=== PATIENT | female | born 1935 | race Caucasian/White ===

== ENCOUNTER 2016-09-26 11:12 | Inpatient (IN) | payer MEDICARE, MEDICAID ==
[~2016-09-26] VITALS: Ht 165.1 cm; Wt 57.2 kg
[~2016-09-26 11:12] MED LIST: AMLO10TA2 PO; ASPI81TA2 PO; Blood Sugar Diagnostic VI; INSU10VI3; INSU3INS6 SUBCUT; LEVO250T2 PO; LOSA100T3 PO; METF500T PO; METO50TA7 PO; ROSU5TAB PO
[2016-09-26] MEDS ORDERED: IV NS 0.9% 500 ML BAG IV ONE (12:00)
--- NOTE | 2016-09-26 12:04 | NUR ---
pt transported to CT in stable condition
[2016-09-26 12:14] LABS: BASOPHILS % (AUTO) 0.3 % (0.0-2.0); EOSINOPHILS # (AUTO) 0.1 /CMM (0.0-0.7); EOSINOPHILS % (AUTO) 2.1 % (0.0-6.0); HEMATOCRIT 35 % (33-45); HEMOGLOBIN 11.3 g/dL (11.5-14.8); LYMPHOCYTES # (AUTO) 1.2 /CMM (0.8-4.8); LYMPHOCYTES % (AUTO) 16.9 % (20.0-44.0); MEAN CORPUSCULAR HEMOGLOBIN 29 PG (26.0-33.0); MEAN CORPUSCULAR HGB CONC 33 g/dl (31.0-36.0); MEAN CORPUSCULAR VOLUME 87 fL (82-100); MONOCYTES # (AUTO) 0.4 /CMM (0.1-1.30); MONOCYTES % (AUTO) 5.6 % (2.0-12.0); NEUTROPHILS # (AUTO) 5.4 /CMM (1.8-8.9); NEUTROPHILS % (AUTO) 75.1 % (43.0-81.0); PLATELET COUNT (AUTO) 280 /CMM (150-450); RDW COEFFICIENT OF VARIATION 12.4 (11.5-15.0); RED BLOOD CELL COUNT(AUTO) 3.98 MIL/uL (4.0-5.2); WHITE BLOOD COUNT (AUTO) 7.1 K/uL (4.3-11.0)
[2016-09-26] MEDS ORDERED: LORAZEPAM INJ 2 MG/ML VIAL ONE ×2 (12:16→12:38)
[2016-09-26 12:28] LABS: INR 1.09 (0.87-1.13); PROTHROMBIN TIME 11.3 SECS (9.5-12.7)
[2016-09-26 12:29] LABS: ALANINE AMINOTRANSFERASE 8 U/L (12-78); ALKALINE PHOSPHATASE 57 U/L (46-116); ASPARTATE AMINOTRANSFERASE 15 U/L (15-37); BILIRUBIN,DIRECT 0.2 mg/dL (0.0-0.2); BILIRUBIN,TOTAL 0.6 mg/dL (0.2-1.0); CALCIUM, SERUM 8.4 mg/dL (8.5-10.1); CARBON DIOXIDE 24 mmol/L (21-32); CHLORIDE 99 mmol/L (98-107); CREATININE 1.4 mg/dL (0.6-1.3); POTASSIUM 4.1 mmol/L (3.5-5.1); SODIUM SERUM 132 mmol/L (136-145); UREA NITROGEN, BLOOD 24 mg/dL (7-18)
--- NOTE | 2016-09-26 12:29 | NUR ---
radiology called to report pt was moving too much for CT. verbal order for 1mg ativan IV now received and administered.
[2016-09-26 12:31] LABS: TROPONIN I < 0.017 ng/mL (0.00-0.056)
[2016-09-26 12:32] LABS: GLUCOSE 357 mg/dL (74-106)
--- NOTE | 2016-09-26 12:44 | NUR ---
CT called to report pt is still moving too much for CT scan. verbal order received for 1mg ativan IV now; administered in CT room by me.
--- NOTE | 2016-09-26 12:53 | NUR ---
CAN NOT DO CT SCAN NOR XRAYS, PT KEEPS MOVING.
--- NOTE | 2016-09-26 12:56 | NUR ---
pt returned from radiology; unable to perform CT or xray d/t pt moving. Dr Olivas aware.
--- NOTE | 2016-09-26 12:59 | NUR ---
CALLED NURSING SUP. FOR TELE BED
[2016-09-26] MEDS ORDERED: LORAZEPAM INJ 2 MG/ML VIAL IV ONE ×3 (13:00)
[2016-09-26] MEDS ORDERED: IV NS 0.9% 500 ML IV ONE (13:07)
[2016-09-26] MEDS ORDERED: IV SET PRIMARY 1 EA INFUS.SET MC ONE ×2 (13:07→13:52)
[2016-09-26] MEDS ORDERED: INSU100V7 SQ (13:17)
[2016-09-26] MEDS ORDERED: AMLO10TA2 PO (13:17)
[2016-09-26 13:19] LABS: APPEARANCE,URINE Turbid (CLEAR); BILIRUBIN,URINE Negative (NEGATIVE); BLOOD, URINE Small Ery/uL (NEGATIVE); COLOR,URINE Light yellow (YELLOW); KETONES,URINE Negative (NEGATIVE); LEUKOCYTE ESTERASE ,URINE Large (NEGATIVE); NITRITE, URINE Positive (NEGATIVE); PH,URINE 6.5 (5.0-8.0); PROTEIN,URINE 30 mg/dl (NEGATIVE); UGLUCOSE Negative (NEGATIVE); UROBILINOGEN,URINE 0.2 EU/dL (0.2)
[2016-09-26] MEDS ORDERED: OLANZAPINE 10 MG VIAL IM ONE ×2 (13:22→13:30)
[2016-09-26] MEDS ORDERED: WATER FOR INJECTION,STERILE 10 ML ONE (13:22)
--- NOTE | 2016-09-26 13:22 | NUR ---
attempted CT and xray again; pt still moving too much.
--- NOTE | 2016-09-26 13:29 | NUR ---
DR.TIM GLEN MONTES DE [facility] CAN SEALER
[2016-09-26 13:30] LABS: ADD URINE CULTURE YES; BACTERIA,URINE 4+ /HPF (None Seen); SQUAMOUS EPITHELIAL CELL,UR Few /HPF (None Seen); WBC,URINE TOO NUMEROUS TO COUN /HPF (0-3)
[2016-09-26] MEDS ORDERED: CEFTRIAXONE 1GM BAG (ER ONLY) 1 GM/50 ML PIGGYBACK IV ONE (13:30)
[2016-09-26] MEDS ORDERED: INSULIN REGULAR, HUMAN 100 UNIT/ML 10 ML VIAL SQ ONE (13:30)
--- NOTE | 2016-09-26 13:41 | NUR ---
PT GOING TO TELE 311-2
--- NOTE | 2016-09-26 13:44 | NUR ---
[facility] REPAGED
--- NOTE | 2016-09-26 13:46 | NUR ---
dr gore on phone with nimisha waters
[2016-09-26] MEDS ORDERED: INSULIN REGULAR, HUMAN 100 UNIT/ML 10 ML VIAL ONE (13:52)
[2016-09-26] MEDS ORDERED: CEFTRIAXONE 1GM BAG (ER ONLY) 50 ML IV ONE (13:52)
--- NOTE | 2016-09-26 14:18 | NUR ---
report given to television specialist. pt resting comfortably in bed, nad noted. vss.
--- NOTE | 2016-09-26 14:50 | NUR ---
pt transported to tele in stable condition via acls protocol
--- NOTE | 2016-09-26 14:55 | NUR ---
CHILD AND YOUTH PROGRAM ASSISTANT NOTES RECEIVED PATIENT FROM E.R. DEPARTMENT, UNDER THE CARE OF DR. KE CARROLL, WITH ADMITTING DIAGNOSIS OF PNEUMONIA, WITH MEDICAL HX OF DM, HTN, ALZHEIMERS, CARDIAC D/O, SCIATICA, UTI, URINARY RETENTION. PATIENT TRANSFERRED TO BED FROM [facility], ALERT AND ORIENTED X1, ON O2 AT 2LPM VIA NC WITH SPO2 92-94%, NO SHORTNESS OF BREATH NOTED, BILATERAL LUNGS DIMINISHED UPON AUSCULTATION, APPEARS TO BE RESTLESS, INITIAL ASSESSMENT COMPLETED, ABDOMEN SOFT AND NON-DISTENDED, PIV ON LFA G20, PATENT AND INTACT, FLUSHES WELL WITH NS, AM CARE RENDERED, DIAPER SOILED AND CHANGED, ENSURE SAFETY AND COMFORT, SIDERAILS X2 UP, LOW BED, LOCKED POSITION, BED ALARM ON, CALL LIGHT WITHIN REACH, WILL CONTINUE TO MONITOR.
--- NOTE | 2016-09-26 15:00 | NUR ---
GARMENT TURNER NOTES SKIN ASSESSMENT COMPLETED, PHOTOS TAKEN AND PLACED IN CHART.
[2016-09-26] MEDS ORDERED: DEXTROSE 50%-WATER 50 ML DISP.SYRIN IV PRN (15:30)
[2016-09-26] MEDS ORDERED: Z GUARD REMEDY 2 OZ OINT TP PRN (15:30)
[2016-09-26] MEDS ORDERED: ACETAMINOPHEN 325 MG TABLET PO PRN (15:30)
[2016-09-26] MEDS ORDERED: ONDANSETRON HCL/PF 4 MG/2 ML VIAL IVP PRN (15:30)
[2016-09-26] MEDS ORDERED: IV SET PRIMARY PUMP SET 1 EA INFUS.SET MC ONE (15:52)
[2016-09-26 16:00] VITALS: BP 152/93
--- NOTE | 2016-09-26 16:00 | NUR ---
AUTO AIR CONDITIONING INSTALLER NOTES SON AT BEDSIDE, PATIENT SLEEPING COMFORTABLY, BREATHING EVEN AND UNLABORED, NO S/SX OF DISTRESS NOTED, VITAL SIGNS STABLE, HOB ELEVATED, SAFETY MEASURES IN PLACED, CALL LIGHT WITHIN REACH, WILL CONTINUE TO MONITOR.
[2016-09-26] MEDS: IV NS 0.9% 1,000 ML IV PRN (16:01)
[2016-09-26] MEDS ORDERED: CEFTRIAXONE 1 G in IV D5W 50 ML IV SCH (17:00)
[2016-09-26] MEDS ORDERED: FLUMAZENIL 0.5 MG VIAL ONE (17:48)
[2016-09-26 17:54] LABS: ABG PCO2 49.7 mmHg (35.0-45.0); ABG PH 7.311 (7.350-7.450); ABG TOTAL HEMOGLOBIN 10.7 G/dL (12.0-16.0); COHb 0.1 % (0.5-1.5); O2Hb 96.9 % (94.0-97.0); SITE, ABG Right Radial; VENT MODE, BG 32% N/C
[2016-09-26] MEDS ORDERED: FLUMAZENIL 0.5 MG VIAL IV PRN (18:00)
[2016-09-26 18:06] VITALS: BP 100/50
[2016-09-26] MEDS: BLOOD SUGAR DIAGNOSTIC 1 EACH STRIP IN SCH ×2 (18:17→22:34)
--- NOTE | 2016-09-26 19:00 | NUR ---
PENOLOGY PROFESSOR NOTES 1736 FSBS RESULT = 11, PATIENT FOUND TO BE UNRESPONSIVE, CHARGE NURSE MADE AWARE 174 MARKETING PERFORMANCE ANALYST PAGED, D50% GIVEN AND FSBS REPEATED WITH RESULT OF 307, 1745 MARKETING PERFORMANCE ANALYST TEAM CAME KEYLA WAGGONER FROM ICU, BUSHRA RT AND DR. GIBSON, VITAL SIGNS STABLE BP 100/50 PULSE 74 R 14 O2SAT 94% TEMP 98.0 2ND DOSE OF D50% GIVEN, FSBS REPEATED WITH RESULT OF 455, PATIENT STILL UNRESPONSIVE. 1748 ROMAZICON 0.2MG IVP, PATIENT WOKE UP THEN SLEPT AGAIN, ADDITIONAL 0.3MG IVP GIVEN AND PATIENT BECAME MORE ALERT. EKG TAKEN BY RT. 1804 RAPID RESPONSE END TIME [address] CARROLL MADE AWARE BY ICU NURSE ABG AND EKG RESULTS REVIEWED BY DR. GIBSON WITH NO NEW ORDER AT THIS TIME. PATIENT TOLERATED AND CONSUMED 100% DINNER. LAST FSBS TAKEN WITH RESULT OF 233 AT 1900. PATIENT SLEEPING INTERMITTENTLY BUT EASILY AROUSABLE. NO S/SX OF DISTRESS AT THIS TIME. WILL ENDORSE TO GRADUATE RESEARCH ASSISTANT FOR SHIELA.
[2016-09-26 20:00] VITALS: BP 108/65
[2016-09-26] MEDS ORDERED: ZOLPIDEM TARTRATE 5 MG TABLET PO PRN (22:00)
[2016-09-26] MEDS: INSULIN DETEMIR 100 UNIT/ML CARTRIDGE SQ SCH (22:00)
[2016-09-26] MEDS: ATORVASTATIN 10 MG TABLET PO SCH (22:57)
[2016-09-26] MEDS: INSULIN REGULAR, HUMAN 100 UNIT/ML 3 ML VIAL SQ PRN (23:07)
[2016-09-27] VITALS: BP 155/78
[2016-09-27 04:00] VITALS: BP_SYST 111; BP_SYST 143; BP_DIAS 69; BP_DIAS 83
[2016-09-27] MEDS: IV NS 0.9% 1,000 ML IV PRN (05:43)
--- NOTE | 2016-09-27 06:28 | NUR ---
ELECTRICAL CONTINUITY INSPECTOR NOTES AWAKE & CONFUSED. NOT IN ANY DISTRESS. NO SOB NOTED. DENIES ANY PAIN OR DISCOMFORT AT THIS TIME. ON TELE SR @ 69 WITH IVF INFUSING WELL. AM CARE DONE. MONITORED ACCORDINGLY. CALL LIGHT WITHIN REACH. BED IN LOWEST POSITION. SR UP X 3 WITH BED ALARM ON FOR SAFETY. WILL ENDORSE TO NEXT SHIFT.
[2016-09-27 06:42] LABS: BASOPHILS % (AUTO) 0.4 % (0.0-2.0); EOSINOPHILS # (AUTO) 0.1 /CMM (0.0-0.7); EOSINOPHILS % (AUTO) 1.7 % (0.0-6.0); HEMATOCRIT 35 % (33-45); HEMOGLOBIN 11.5 g/dL (11.5-14.8); LYMPHOCYTES # (AUTO) 1.2 /CMM (0.8-4.8); LYMPHOCYTES % (AUTO) 15.7 % (20.0-44.0); MEAN CORPUSCULAR HEMOGLOBIN 29 PG (26.0-33.0); MEAN CORPUSCULAR HGB CONC 33 g/dl (31.0-36.0); MEAN CORPUSCULAR VOLUME 88 fL (82-100); MONOCYTES # (AUTO) 0.6 /CMM (0.1-1.30); NEUTROPHILS # (AUTO) 5.9 /CMM (1.8-8.9); NEUTROPHILS % (AUTO) 75.2 % (43.0-81.0); PLATELET COUNT (AUTO) 299 /CMM (150-450); RDW COEFFICIENT OF VARIATION 13.5 (11.5-15.0); RED BLOOD CELL COUNT(AUTO) 3.99 MIL/uL (4.0-5.2); WHITE BLOOD COUNT (AUTO) 7.9 K/uL (4.3-11.0)
[2016-09-27 07:15] LABS: BILIRUBIN,TOTAL 0.6 mg/dL (0.2-1.0); CALCIUM, SERUM 8.7 mg/dL (8.5-10.1); CREATININE 1.1 mg/dL (0.6-1.3); MAGNESIUM 1.7 mg/dL (1.8-2.4); PHOSPHORUS 3.7 mg/dL (2.5-4.9); POTASSIUM 4.3 mmol/L (3.5-5.1); TOTAL PROTEIN, SERUM 7.3 g/dL (6.4-8.2)
--- NOTE | 2016-09-27 07:25 | NUR ---
RN OPEN NOTES RECEIVED REPORT FROM CAR MOVER NURSE. PATIENT IS IN BED, AWAKE. PUERTO RICAN SPEAKING. PATIENT IS REMOVING BLANKETS AND TRYING TO PULL HER IV LINE. SINUS RHYTHM ON THE MONITOR. IV SITE IS COVERED. 3 SIDE RAILS ARE UP. SITTER WILL BE REQUESTED. BED IS IN LOW POSITION AND LOCKED. WILL CONTINUE TO ASSESS AND MONITOR PATIENT CONDITION THROUGH OUT MY SHIFT.
[2016-09-27] MEDS: BLOOD SUGAR DIAGNOSTIC 1 EACH STRIP IN SCH ×4 (07:30→21:23)
--- NOTE | 2016-09-27 07:55 | NUR ---
RN NOTES PT. AGITATION PAGED DR CARROLL THROUGH [employer]. PATIENT IS TRYING TO GET OFF BED, PULLING HER IV SITE, REMOVED HER TELE LEADS AND BOX, REMOVED GOWN AND BLANKET.
[2016-09-27 09:34] LABS: THYROID STIMULATING HORMONE 1.401 uIU/mL (0.358-3.74)
[2016-09-27] MEDS: ASPIRIN 81 MG TAB.CHEW PO SCH (09:52)
[2016-09-27] MEDS: METFORMIN 500 MG TABLET PO SCH (09:53)
[2016-09-27] MEDS: AMLODIPINE BESYLATE 10 MG TABLET PO SCH (09:53)
[2016-09-27] MEDS: PANTOPRAZOLE 40 MG TABLET.DR PO SCH (09:53)
[2016-09-27] MEDS: LOSARTAN POTASSIUM 50 MG TABLET PO SCH (09:53)
[2016-09-27] MEDS: METOPROLOL SUCCINATE 50 MG TAB.SR.24H PO SCH (09:54)
[2016-09-27] MEDS ORDERED: OLANZAPINE 10 MG VIAL IM ONE (10:00)
--- NOTE | 2016-09-27 10:00 | NUR ---
RN NOTES PATIENT PULLED HER IV SITE. NEW SITE WAS STARTED.
[2016-09-27] MEDS: INSULIN REGULAR, HUMAN 100 UNIT/ML 3 ML VIAL SQ PRN ×4 (12:08→21:26)
[2016-09-27] MEDS ORDERED: SECONDARY IV SET 1 EA INFUS.SET MC ONE ×2 (12:34→14:46)
[2016-09-27] MEDS ORDERED: SET RED CAP 1 EA INFUS.SET MC ONE (12:35)
[2016-09-27] MEDS: Magnesium 1GM/D5W 100ML PREMIX 100 ML IV SCH ×2 (12:41→13:47)
[2016-09-27] MEDS: CEFTRIAXONE 1 G in IV D5W 50 ML IV SCH (14:50)
--- NOTE | 2016-09-27 16:17 | NUR ---
RN NOTES PT PATIENT WAS WORKING WITH PHYSICAL THERAPY. WAS ABLE TO SIT AT THE EDGE OF THE BED AND WALKED TWO STEPS TO THE SIDE. COMPLETE LINEN AND DIAPER CHANGED
[2016-09-27 17:03] VITALS: BP 137/65
--- NOTE | 2016-09-27 17:35 | NUR ---
ROSALINE NOTES BLOOD SUGAR PATIENT BLOOD SUGAR IS HIGH. 1ST BLOOD SUGAR 402, 2ND BLOOD SUGAR 420. 10 REGULAR INSULIN ADMINISTERED. NOTIFIED AT 1748. Addendum: 09/27/16 at 1848 by GABRIEL ESTRADA RN DR CARROLL REPLIED. ORDERED TO RECHECK BLOOD SUGAR AND TO ADMINISTER 10 MORE UNITS. BLOOD SUGAR IS 382, 10 UNITS ADMINISTERED
--- NOTE | 2016-09-27 18:49 | NUR ---
RN CLOSING NOTES PATIENT IS SITTING IN A WHEELCHAIR IN THE HALLWAY NEXT TO THE NURSING STATION. WHEELCHAIR LOCKED =. PATIENT IS AWAKE AND TALKING. SPEAKING BELARUSIAN ONLY. IV SITE ON THE RIGHT WRIST IS INTACT AND POTENT. NO SIGN AND SYMPTOMS OF DISTRESS. PLEASE REFER TO BLOOD SUGAR LEVEL IN MY PREVIOUS NOTE. 1:1 SITTER ORDERED FOR SUPERVISOR TRAVEL TRAILER. WILL ENDORSE TO SUPERVISOR TRAVEL TRAILER NURSE.
[2016-09-27 20:00] VITALS: BP 118/97
[2016-09-27 20:21] VITALS: BP 118/97
[2016-09-27] MEDS: ATORVASTATIN 10 MG TABLET PO SCH (21:23)
[2016-09-27] MEDS: INSULIN DETEMIR 100 UNIT/ML CARTRIDGE SQ SCH (21:25)
--- NOTE | 2016-09-28 06:38 | NUR ---
MS RN NOTES AWAKE & CONFUSED. NOT IN ANY DISTRESS. NO SOB NOTED. DENIES ANY PAIN OR DISCOMFORT AT THIS TIME. WITH IVF INFUSING WELL. AM CARE DONE. MONITORED ACCORDINGLY. CALL LIGHT WITHIN REACH. BED IN LOWEST POSITION. WITH SITTER AT BEDSIDE. SR UP X 3 WITH BED ALARM ON FOR SAFETY. WILL ENDORSE TO NEXT SHIFT.
[2016-09-28 07:14] LABS: BASOPHILS % (AUTO) 0.6 % (0.0-2.0); EOSINOPHILS # (AUTO) 0.1 /CMM (0.0-0.7); EOSINOPHILS % (AUTO) 1.8 % (0.0-6.0); HEMATOCRIT 34 % (33-45); HEMOGLOBIN 11.2 g/dL (11.5-14.8); LYMPHOCYTES # (AUTO) 1.4 /CMM (0.8-4.8); LYMPHOCYTES % (AUTO) 21.1 % (20.0-44.0); MEAN CORPUSCULAR HEMOGLOBIN 28 PG (26.0-33.0); MEAN CORPUSCULAR HGB CONC 33 g/dl (31.0-36.0); MEAN CORPUSCULAR VOLUME 87 fL (82-100); MONOCYTES # (AUTO) 0.6 /CMM (0.1-1.30); MONOCYTES % (AUTO) 8.6 % (2.0-12.0); NEUTROPHILS # (AUTO) 4.5 /CMM (1.8-8.9); NEUTROPHILS % (AUTO) 67.9 % (43.0-81.0); PLATELET COUNT (AUTO) 275 /CMM (150-450); RDW COEFFICIENT OF VARIATION 13.3 (11.5-15.0); RED BLOOD CELL COUNT(AUTO) 3.93 MIL/uL (4.0-5.2); WHITE BLOOD COUNT (AUTO) 6.7 K/uL (4.3-11.0)
[2016-09-28 07:26] LABS: CALCIUM, SERUM 8.4 mg/dL (8.5-10.1); CREATININE 1.2 mg/dL (0.6-1.3); MAGNESIUM 2.1 mg/dL (1.8-2.4); PHOSPHORUS 3.6 mg/dL (2.5-4.9); POTASSIUM 4.2 mmol/L (3.5-5.1)
[2016-09-28] MEDS: BLOOD SUGAR DIAGNOSTIC 1 EACH STRIP IN SCH ×4 (07:30→21:42)
--- NOTE | 2016-09-28 07:50 | NUR ---
MS RN RECEIVED ON BED, AWAKE,, ORIENTED X1, ON ONE ON ONE SITTER FOR SAFETY, DENIES PAIN AT THIS TIME,NO DISTRESS NOTED, WILL MONITOR PATIENT'S CONDITION.
[2016-09-28 08:00] VITALS: BP 130/74
--- NOTE | 2016-09-28 08:32 | NUR ---
WOUND CARE CONSULT: PATIENT SEEN AND SKIN ASSESSMENT DONE. PATIENT ALERT, UNABLE TO TURN AND REPOSITION SELF, INCONTINENT, SARA 13, DEEPIKA ISOFLEX RITA BED IN USE. SEE TODAY'S SKIN ASSESSMENT ALONG WITH RECOMMENDATIONS. RECOMMEND MOISTURE / SKIN PROTECTION AND PRESSURE PREVENTION MEASURES ORDERED. ALL DISCUSSED WITH NURSING STAFF. MD IN AGREEMENT WITH PLAN OF CARE. Addendum: 09/28/16 at 0839 by LUKE JAIME WNDNU Amended: Links added.
[2016-09-28] MEDS: METFORMIN 500 MG TABLET PO SCH (09:00)
--- NOTE | 2016-09-28 09:00 | NUR ---
MS RN REFUSED BREAKFAST, DUE MEDS GIVEN,TOLERATED WELL.
[2016-09-28] MEDS: AMLODIPINE BESYLATE 10 MG TABLET PO SCH (09:34)
[2016-09-28] MEDS: PANTOPRAZOLE 40 MG TABLET.DR PO SCH (09:34)
[2016-09-28] MEDS: METOPROLOL SUCCINATE 50 MG TAB.SR.24H PO SCH (09:34)
[2016-09-28] MEDS: ASPIRIN 81 MG TAB.CHEW PO SCH (09:34)
[2016-09-28] MEDS: LOSARTAN POTASSIUM 50 MG TABLET PO SCH (09:35)
--- NOTE | 2016-09-28 12:00 | NUR ---
MS RN BS - 217 - NO COVERAGE GIVEN, PATIENT REFUSE LUNCH,NOT EATING WELL, HAD HISTORY OF HYPOGLYCEMIA.
--- NOTE | 2016-09-28 15:00 | NUR ---
MS RN WAS SEEN BY DR. KE Mclaughlin/ ORDER TO GO HOME TODAY.
[2016-09-28] MEDS: CEFTRIAXONE 1 G in IV D5W 50 ML IV SCH (15:37)
[2016-09-28 16:00] VITALS: BP 150/79
[2016-09-28] MEDS: NEOMY SULF/BACITRAC ZN/POLY 15 GM TUBE TP SCH (17:05)
--- NOTE | 2016-09-28 17:20 | NUR ---
MS RN CALLED SON YOVANY, FOR DISCHARGE, SON REFUSE MOM TO BE DISCHARGE TODAY, ACCORDING TO HIM,SHE IS NOT YET READY TO BE DISCHARGE,AND WANTS TO SPEAK W/ THE DOCTOR.
--- NOTE | 2016-09-28 17:20 | NUR ---
MS WAGGONER BS - 276 - 6 UNITS OF REGULAR INSULIN GIVEN, SQ.
[2016-09-28] MEDS: INSULIN REGULAR, HUMAN 100 UNIT/ML 3 ML VIAL SQ PRN ×2 (17:33→21:53)
--- NOTE | 2016-09-28 17:50 | NUR ---
MS WAGGONER BS - 276 - 6 UNITS REGULAR INSULIN GIVE SQ.
--- NOTE | 2016-09-28 18:00 | NUR ---
MS RN TEXT KE W/ ANSWER TO DISCHARGE PT TODAY.
--- NOTE | 2016-09-28 18:09 | NUR ---
MS RN SON TEXTED THAT NOBODY TO PICK HIS MOM TODAY,HE IS IN [facility]. AWARE.
--- NOTE | 2016-09-28 19:40 | NUR ---
MS RN NOTE: PATIENT RESTING IN BED, NO ACUTE DISTRESS NOTED. BREATHING EVEN AND UNLABORED, NO SOB NOTED. IV TO RIGHT WRIST IN PLACE. NO S/S OF HYPER/HYPOGLYCEMIA NOTED AT THIS TIME. SITTER AT BEDSIDE. BED LOCKED AND IN LOWEST POSITION, CALL LIGHT IN REACH. WILL CONTINUE TO MONITOR.
[2016-09-28 20:00] VITALS: BP 117/73
[2016-09-28] MEDS: ATORVASTATIN 10 MG TABLET PO SCH (21:41)
[2016-09-28] MEDS: INSULIN DETEMIR 100 UNIT/ML CARTRIDGE SQ SCH (21:48)
--- NOTE | 2016-09-28 21:55 | NUR ---
MS RN NOTE: PATIENT BLOOD SUGAR LEVEL 289MG/DL, PATIENT TO RECEIVE 10 UNITS OF LEVEMIR PER MD ORDER AND 6 UNITS OF INSULIN PER SLIDING SCALE. NO S/S OF HYPER/HYPOGLYCEMIA NOTED AT THIS TIME. WILL CONTINUE TO MONITOR.
--- NOTE | 2016-09-29 06:20 | NUR ---
MS RN NOTE: PATIENT RESTING IN BED, NO ACUTE DISTRESS NOTED. BREATHING EVEN AND UNLABORED, NO SOB NOTED. IV TO RIGHT WRIST IN PLACE. PATIENT BLOOD SUGAR LEVEL 247MG/DL, PATIENT TO RECEIVE 4 UNITS OF INSULIN PER SLIDING SCALE, NO S/S OF HYPER/HYPOGLYCEMIA NOTED AT THIS TIME. SITTER AT BEDSIDE. BED LOCKED AND IN LOWEST POSITION, CALL LIGHT IN REACH. WILL ENDORSE TO DAY NURSE TO CONTINUE WITH PLAN OF CARE.
[2016-09-29] MEDS: BLOOD SUGAR DIAGNOSTIC 1 EACH STRIP IN SCH ×2 (06:44→12:31)
[2016-09-29] MEDS: INSULIN REGULAR, HUMAN 100 UNIT/ML 3 ML VIAL SQ PRN ×2 (06:50→12:32)
[2016-09-29 07:19] LABS: BASOPHILS % (AUTO) 0.5 % (0.0-2.0); EOSINOPHILS # (AUTO) 0.2 /CMM (0.0-0.7); EOSINOPHILS % (AUTO) 2.9 % (0.0-6.0); HEMATOCRIT 34 % (33-45); HEMOGLOBIN 11.4 g/dL (11.5-14.8); LYMPHOCYTES # (AUTO) 1.1 /CMM (0.8-4.8); LYMPHOCYTES % (AUTO) 17.3 % (20.0-44.0); MEAN CORPUSCULAR HEMOGLOBIN 29 PG (26.0-33.0); MEAN CORPUSCULAR HGB CONC 33 g/dl (31.0-36.0); MEAN CORPUSCULAR VOLUME 86 fL (82-100); MONOCYTES # (AUTO) 0.5 /CMM (0.1-1.30); MONOCYTES % (AUTO) 8.3 % (2.0-12.0); NEUTROPHILS # (AUTO) 4.3 /CMM (1.8-8.9); PLATELET COUNT (AUTO) 263 /CMM (150-450); RDW COEFFICIENT OF VARIATION 13.7 (11.5-15.0); RED BLOOD CELL COUNT(AUTO) 3.96 MIL/uL (4.0-5.2); WHITE BLOOD COUNT (AUTO) 6.1 K/uL (4.3-11.0)
[2016-09-29 08:00] VITALS: BP 157/59
--- NOTE | 2016-09-29 08:02 | NUR ---
MS RN NOTE: PATIENT RESTING IN BED, NO ACUTE DISTRESS NOTED. BREATHING EVEN AND UNLABORED, NO SOB NOTED IN NO APPARENT PAIN OR DISCOMFORT. IV TO RIGHT WRIST IN PLACE. NO S/S OF HYPER/HYPOGLYCEMIA NOTED AT THIS TIME. SITTER AT BEDSIDE. BED LOCKED AND IN LOWEST POSITION, CALL LIGHT IN REACH. WILL CONTINUE WITH PLAN OF CARE.
[2016-09-29 08:03] LABS: CALCIUM, SERUM 8.7 mg/dL (8.5-10.1); CREATININE 1.2 mg/dL (0.6-1.3); MAGNESIUM 1.7 mg/dL (1.8-2.4); PHOSPHORUS 3.4 mg/dL (2.5-4.9); POTASSIUM 3.9 mmol/L (3.5-5.1)
[2016-09-29] MEDS: ASPIRIN 81 MG TAB.CHEW PO SCH (09:05)
[2016-09-29] MEDS: PANTOPRAZOLE 40 MG TABLET.DR PO SCH (09:05)
[2016-09-29 09:06] VITALS: BP 157/59
[2016-09-29] MEDS: METFORMIN 500 MG TABLET PO SCH (09:06)
[2016-09-29] MEDS: LOSARTAN POTASSIUM 50 MG TABLET PO SCH (09:06)
[2016-09-29] MEDS: METOPROLOL SUCCINATE 50 MG TAB.SR.24H PO SCH (09:06)
[2016-09-29] MEDS: AMLODIPINE BESYLATE 10 MG TABLET PO SCH (09:06)
[2016-09-29] MEDS: NEOMY SULF/BACITRAC ZN/POLY 15 GM TUBE TP SCH (09:11)
[2016-09-29] MEDS ORDERED: MAGNESIUM OXIDE 400 MG TABLET PO ONE (12:00)
--- NOTE | 2016-09-29 13:00 | NUR ---
RN NOTES ALL DUE MEDICATIONS GIVEN WITH NO ASE NOTED, WILL CONTINUE TO MONITOR
--- NOTE | 2016-09-29 13:32 | NUR ---
RN NOTES PATIENT WITH DISCHARGE ORDERS, WILL CONTINUE TO MONITOR AND ASSIST WITH DISCHARGE PROCESS APPROPRIATE, PT REFUSES PICTURES OF SKIN AT THIS TIME NOTED WITH CONFUSION MD AWARE, NURSING EDUCATION REINFORCED, WILL CONTINUE TO MONITOR SON WILL HOUSING DEVELOPMENT SPECIALIST
--- NOTE | 2016-09-29 13:42 | NUR ---
MS RN NOTE: PATIENT SITTING UP IN BED, NO ACUTE DISTRESS NOTED. BREATHING EVEN AND UNLABORED, NO SOB NOTED IN NO APPARENT PAIN OR DISCOMFORT. IV TO RIGHT WRIST IN PLACE AND ID BAND REMOVED NO S/S OF HYPER/HYPOGLYCEMIA NOTED AT THIS TIME.PATIENT CONTINUES TO REFUSE PICTURES OF SKIN, NURSING EDUCATION REINFORCED, DISCHARGE INSTRUCTIONS REVIEWED WITH SON YOVANY, WITH NOTED VERBAL UNDERSTANDING, ASSISTED TO LOBBY BY COREMAKING MACHINE SETTER DISCHARGED IN STABLE CONDITION
== END 2016-09-29 13:30 | disposition home or self-care (01) | DRG 871 ==
LOC: ER 11:14 → TELE 13:54 → MED 09-27 09:36
PROVIDERS: ADMIT Nurse Practitioner Acute Care; ATTEND Nurse Practitioner Acute Care
DX: A41.9 Sepsis, unspecified organism (principal); G93.40 Encephalopathy, unspecified; J96.02 Acute respiratory failure with hypercapnia; N17.0 Acute kidney failure with tubular necrosis; N39.0 Urinary tract infection, site not specified; F23 Brief psychotic disorder; G30.9 Alzheimer's disease, unspecified; I10 Essential (primary) hypertension; F02.80 Dementia in other diseases classified elsewhere, unspecified severity, without behavioral disturbance, psychotic disturbance, mood disturbance, and anxiety; I25.10 Atherosclerotic heart disease of native coronary artery without angina pectoris; E11.65 Type 2 diabetes mellitus with hyperglycemia; E78.5 Hyperlipidemia, unspecified; K21.9 Gastro-esophageal reflux disease without esophagitis; M54.30 Sciatica, unspecified side; Z87.440 Personal history of urinary (tract) infections; Z79.82 Long term (current) use of aspirin; Z83.3 Family history of diabetes mellitus
CPT/HCPCS: 36415; 36600; 70450-TC; 71010-TC; 73510-TC; 80048-TC; 80053-TC; 80061-TC; 80076-TC; 81000-TC; 82962-TC; 83735-TC; 84100-TC; 84443-TC; 84484-TC; 85025-TC; 85730-TC; 87081-TC; 87086-TC; 87186-TC; 97001-TC; 97116-TC; 97530-TC; A4606; J0696; J1815; J2060; J3475; J3490; J7030; J7040; J7060; Z7610

== ENCOUNTER 2016-12-14 10:45 | Inpatient (IN) | payer MEDICARE, MEDICAID ==
[~2016-12-14] VITALS: Ht 149.9 cm; Wt 59.0 kg
[2016-12-14 04:00] VITALS: BP 129/66
[~2016-12-14 10:45] MED LIST changes: +INSU100V7 SQ; -INSU10VI3; -INSU3INS6 SUBCUT; -LEVO250T2 PO
--- NOTE | 2016-12-14 10:45 | NUR ---
PT TO ED ROOM 06. BB SON: POSSIBLE UTI. KT FASTING BS IN AM: 230.PADMA. A/A/O x 1 2/2 ALZHEIMER'S DEMENTIA. CHANGED TO GOWN. SIDE RAISL UP. HOB ELEVATED. CONENCTED TO [facility]. SEEN AND EVALAUTED BY ED PROVIDER.
--- NOTE | 2016-12-14 11:10 | NUR ---
BLOOD CULTURES OBTAINED FROM PATIENT AND SEND TO LAB PRIOT TO ADMINISTRATION OF ANTIBIOTICS.
[2016-12-14] MEDS ORDERED: IV SET PRIMARY 1 EA INFUS.SET MC ONE ×2 (11:11→12:03)
[2016-12-14] MEDS ORDERED: IV NS 0.9% 500 ML IV ONE (11:11)
--- NOTE | 2016-12-14 11:11 | NUR ---
ACCU CHECK: 239.
--- NOTE | 2016-12-14 11:12 | NUR ---
GREEK PROFESSOR AT BEDSIDE FOR BLOOD DRAW.
[2016-12-14 11:17] LABS: BASOPHILS % (AUTO) 0.5 % (0.0-2.0); EOSINOPHILS # (AUTO) 0.1 /CMM (0.0-0.7); EOSINOPHILS % (AUTO) 2.2 % (0.0-6.0); HEMATOCRIT 37 % (33-45); HEMOGLOBIN 12.2 g/dL (11.5-14.8); LYMPHOCYTES # (AUTO) 1.4 /CMM (0.8-4.8); LYMPHOCYTES % (AUTO) 21.2 % (20.0-44.0); MEAN CORPUSCULAR HEMOGLOBIN 28 PG (26.0-33.0); MEAN CORPUSCULAR HGB CONC 33 g/dl (31.0-36.0); MEAN CORPUSCULAR VOLUME 85 fL (82-100); MONOCYTES # (AUTO) 0.4 /CMM (0.1-1.30); MONOCYTES % (AUTO) 6.4 % (2.0-12.0); NEUTROPHILS # (AUTO) 4.5 /CMM (1.8-8.9); NEUTROPHILS % (AUTO) 69.7 % (43.0-81.0); PLATELET COUNT (AUTO) 262 /CMM (150-450); RED BLOOD CELL COUNT(AUTO) 4.38 MIL/uL (4.0-5.2); WHITE BLOOD COUNT (AUTO) 6.4 K/uL (4.3-11.0)
[2016-12-14 11:29] LABS: CALCIUM, SERUM 8.6 mg/dL (8.5-10.1); CARBON DIOXIDE 24 mmol/L (21-32); CHLORIDE 105 mmol/L (98-107); CREATININE 1.2 mg/dL (0.6-1.3); GLUCOSE 252 mg/dL (74-106); POTASSIUM 3.8 mmol/L (3.5-5.1); SODIUM SERUM 138 mmol/L (136-145); UREA NITROGEN, BLOOD 30 mg/dL (7-18)
--- NOTE | 2016-12-14 11:29 | NUR ---
URINE SPECIMEN OBTAINED VIA STRAIGHT CATH.
[2016-12-14] MEDS ORDERED: IV NS 0.9% 500 ML BAG IV ONE (11:30)
[2016-12-14 11:33] LABS: PROTHROMBIN TIME 10.4 SECS (9.5-12.7)
[2016-12-14 11:35] LABS: ALANINE AMINOTRANSFERASE 12 U/L (12-78); ALBUMIN 3.3 g/dL (3.4-5.0); ALKALINE PHOSPHATASE 66 U/L (46-116); ASPARTATE AMINOTRANSFERASE 14 U/L (15-37); BILIRUBIN,DIRECT 0.1 mg/dL (0.0-0.2); BILIRUBIN,TOTAL 0.5 mg/dL (0.2-1.0); TOTAL PROTEIN, SERUM 7.8 g/dL (6.4-8.2)
[2016-12-14 11:37] LABS: TROPONIN I < 0.017 ng/mL (0.00-0.056)
[2016-12-14 11:37] LABS: APPEARANCE,URINE Cloudy (CLEAR); BILIRUBIN,URINE Negative (NEGATIVE); BLOOD, URINE Moderate Ery/uL (NEGATIVE); COLOR,URINE Yellow (YELLOW); KETONES,URINE Negative (NEGATIVE); LEUKOCYTE ESTERASE ,URINE Small (NEGATIVE); NITRITE, URINE Positive (NEGATIVE); PH,URINE 5.5 (5.0-8.0); PROTEIN,URINE 30 mg/dl (NEGATIVE); UGLUCOSE Negative (NEGATIVE); UROBILINOGEN,URINE 0.2 EU/dL (0.2)
[2016-12-14 11:47] LABS: BACTERIA,URINE 2+ /HPF (None Seen); SQUAMOUS EPITHELIAL CELL,UR Few /HPF (None Seen); WBC,URINE 51-80 /HPF (0-3)
--- NOTE | 2016-12-14 11:51 | NUR ---
CALLED [facility] HAZARDOUS WASTE MATERIAL TECHNICIAN DOCTOR WAS PAGED.
[2016-12-14] MEDS ORDERED: CEFTRIAXONE 1GM BAG (ER ONLY) 1 GM/50 ML PIGGYBACK IV ONE (12:00)
--- NOTE | 2016-12-14 12:00 | NUR ---
Patient is resting comfortably in bed with eyes closed. Easily aroused. VSS
[2016-12-14] MEDS ORDERED: CEFTRIAXONE 1GM BAG (ER ONLY) 50 ML IV ONE (12:03)
--- NOTE | 2016-12-14 12:48 | NUR ---
REPORT GIVEN TO LIZET 309.2 MS.
--- NOTE | 2016-12-14 13:00 | NUR ---
PATTERN WHEEL MAKER NOTE RECEIVED PATIENT FROM E.R. DEPARTMENT VIA GURNEY, ALERT AND ORIENTED X1, CONFUSED, TONGAN SPEAKING, ADMITTED DIAGNOSIS UTI&AMS, UNDER THE CARE OF DR. KE CARROLL MD MADE AWARE OF ADMISSION. PATIENT PLACED COMFORTABLY IN BED, SKIN ASSESSMENT COMPLETED, PHOTOS TAKEN OF WOUNDS ON BILATERAL BUTTOCKS, CLEANSED WITH NS, COVERED WITH MEPILEX, SITTER AT BEDSIDE, WILL CONTINUE TO MONITOR.
[2016-12-14 13:30] VITALS: BP 129/88
[2016-12-14] MEDS ORDERED: ONDANSETRON HCL/PF 4 MG/2 ML VIAL IVP PRN (14:30)
[2016-12-14] MEDS ORDERED: ACETAMINOPHEN 325 MG TABLET PO PRN (14:30)
[2016-12-14] MEDS ORDERED: ENOXAPARIN SODIUM 40 MG/0.4 ML DISP.SYRIN SQ SCH (14:30)
[2016-12-14] MEDS ORDERED: Z GUARD REMEDY 2 OZ OINT TP PRN (14:30)
[2016-12-14] MEDS ORDERED: DEXTROSE 50%-WATER 50 ML DISP.SYRIN IV PRN (16:00)
[2016-12-14] MEDS ORDERED: IV SET PRIMARY PUMP SET 1 EA INFUS.SET MC ONE (16:52)
[2016-12-14] MEDS: METFORMIN 500 MG TABLET PO SCH (16:56)
[2016-12-14] MEDS: IV NS 0.9% 1,000 ML IV PRN (17:02)
--- NOTE | 2016-12-14 17:05 | NUR ---
RN MS NOTES PATIENT ALERT AND ORIENTED X1, HAS EPISODES OF AGITATION, DR. CARROLL MADE AWARE AND GAVE ATIVAN ORDER X1, ORDER NOTED AND CARRIED OUT.
[2016-12-14] MEDS ORDERED: LORAZEPAM INJ 2 MG/ML VIAL IV ONE (17:15)
[2016-12-14] MEDS: BLOOD SUGAR DIAGNOSTIC 1 EACH STRIP IN SCH ×2 (17:24→21:16)
--- NOTE | 2016-12-14 17:25 | NUR ---
RN MS NOTES BLOOD SUGAR CHECKED TWICE WITH RESULT OF 49MG/DL. PATIENT IS ALERT AND ORIENTED, VERBALLY RESPONSIVE, ASYMPTOMATIC, PATIENT GIVEN ORANGE JUICE AND IS NOW EATING DINNER, WILL RECHECK BLOOD SUGAR AFTER DINNER, CHARGE NURSE MADE AWARE.
--- NOTE | 2016-12-14 18:30 | NUR ---
ROSALINE MS NOTES INFORMED BY TAL PATIENT ATE DINNER 100% WITH ORANGE JUICE, BLOOD SUGAR RECHECKED WITH RESULT OF 120MG/DL, PATIENT IS IN STABLE CONDITION, NO CHANGE IN LOC, NO DISTRESS NOTED, FAMILY AT BEDSIDE, APPEARS TO BE CALM AT THIS TIME, Addendum: 12/14/16 at 1846 by ELISEO OROZCO RN ADDENDUM: MADE AWARE, ALL NEEDS ATTENDED AND MET, ADL CARE PROVIDED, SITTER AT BEDSIDE, WILL ENDORSE TO PUBLIC UTILITIES SALES REPRESENTATIVE FOR SHIELA.
--- NOTE | 2016-12-14 18:49 | NUR ---
RN MS NOTES ATIVAN 0.5MG IV X1 NOT GIVEN, PATIENT IS CALM AT THIS TIME, FAMILY AND SITTER AT BEDSIDE TO ENSURE SAFETY AND COMFORT.
--- NOTE | 2016-12-14 19:30 | NUR ---
MS RN NOTE PATIENT RECEIVED AWAKE AND ALERT X1 IN BED. PT. CONFUSED. SITTER AT BEDSIDE. NO SOB OR RESPIRATORY DISTRESS NOTED. NO S/S O FPAIN. IV SITE INTACT, WITH NO REDNESS OR INFILTRATION NOTED. BED LOCKED AND IN LOWEST POSITION. SIDE RAILS UP, CALL LIGHT WITHIN REACH. WILL CONTINUE TO MONITOR.
[2016-12-14 20:00] VITALS: BP 129/59
[2016-12-14] MEDS: ATORVASTATIN 10 MG TABLET PO SCH (21:14)
[2016-12-14] MEDS: ENOXAPARIN SODIUM 30 MG/0.3 ML DISP.SYRIN SQ SCH (21:15)
[2016-12-14] MEDS: INSULIN REGULAR, HUMAN 100 UNIT/ML 3 ML VIAL SQ PRN (21:23)
[2016-12-14] MEDS ORDERED: INSULIN DETEMIR 100 UNIT/ML CARTRIDGE SQ SCH (22:00)
[2016-12-14 23:05] VITALS: BP 129/59
[2016-12-15] MEDS: BLOOD SUGAR DIAGNOSTIC 1 EACH STRIP IN SCH ×4 (05:43→21:28)
--- NOTE | 2016-12-15 06:52 | NUR ---
MS RN NOTE BLOOD SUGAR WAS 47. ADMINISTERED D50. RE-CHECKED. BS 140. PATIENT STABLE. SITTER AT BEDSIDE. WILL ENDORSE TO DAY SHIFT FOR SHIELA.
--- NOTE | 2016-12-15 07:30 | NUR ---
RECEIVED PT. IN AM ALERT AND ORIENTED X1.IV INFUSING,HAS 1:1 SITTER.
[2016-12-15 07:37] LABS: BASOPHILS % (AUTO) 0.3 % (0.0-2.0); EOSINOPHILS % (AUTO) 0.4 % (0.0-6.0); HEMATOCRIT 39 % (33-45); HEMOGLOBIN 12.8 g/dL (11.5-14.8); LYMPHOCYTES % (AUTO) 13.5 % (20.0-44.0); MEAN CORPUSCULAR HEMOGLOBIN 29 PG (26.0-33.0); MEAN CORPUSCULAR HGB CONC 33 g/dl (31.0-36.0); MEAN CORPUSCULAR VOLUME 87 fL (82-100); MONOCYTES # (AUTO) 0.3 /CMM (0.1-1.30); MONOCYTES % (AUTO) 4.7 % (2.0-12.0); NEUTROPHILS # (AUTO) 5.9 /CMM (1.8-8.9); NEUTROPHILS % (AUTO) 81.1 % (43.0-81.0); PLATELET COUNT (AUTO) 282 /CMM (150-450); RDW COEFFICIENT OF VARIATION 15.1 (11.5-15.0); RED BLOOD CELL COUNT(AUTO) 4.47 MIL/uL (4.0-5.2); WHITE BLOOD COUNT (AUTO) 7.3 K/uL (4.3-11.0)
[2016-12-15 08:00] VITALS: BP 128/69
--- NOTE | 2016-12-15 08:00 | NUR ---
TIANA DÍAZ INFORMED OF LOW GLUCOSE THIS AM-STATES HE WILL LOOK IN TO IT.
[2016-12-15 08:08] LABS: ALANINE AMINOTRANSFERASE 18 U/L (12-78); ALBUMIN 3.5 g/dL (3.4-5.0); ALKALINE PHOSPHATASE 75 U/L (46-116); ASPARTATE AMINOTRANSFERASE 17 U/L (15-37); BILIRUBIN,TOTAL 0.4 mg/dL (0.2-1.0); CALCIUM, SERUM 8.8 mg/dL (8.5-10.1); CARBON DIOXIDE 26 mmol/L (21-32); CHLORIDE 107 mmol/L (98-107); GLUCOSE 108 mg/dL (74-106); MAGNESIUM 1.5 mg/dL (1.8-2.4); PHOSPHORUS 4.1 mg/dL (2.5-4.9); POTASSIUM 3.7 mmol/L (3.5-5.1); SODIUM SERUM 143 mmol/L (136-145); TOTAL PROTEIN, SERUM 8.5 g/dL (6.4-8.2); UREA NITROGEN, BLOOD 23 mg/dL (7-18)
[2016-12-15 08:11] LABS: CHOLESTEROL 136 mg/dL (<200); HDL CHOLESTEROL 55 mg/dL (40-60); LDL 55 mg/dL (0-99); THYROID STIMULATING HORMONE 2.397 uIU/mL (0.358-3.74); TRIGLYCERIDES 77 mg/dL (30-150)
[2016-12-15] MEDS: METFORMIN 500 MG TABLET PO SCH ×2 (09:00→17:58)
[2016-12-15] MEDS: METOPROLOL SUCCINATE 50 MG TAB.SR.24H PO SCH (09:07)
[2016-12-15] MEDS: AMLODIPINE BESYLATE 10 MG TABLET PO SCH (09:07)
[2016-12-15] MEDS: ASPIRIN 81 MG TAB.CHEW PO SCH (09:07)
--- NOTE | 2016-12-15 11:20 | NUR ---
WOUND CARE CONSULT: LIMITED ASSESSMENT DUE TO PT REFUSING TO HAVE SOCKS REMOVED. PT BECOMES AGITATED AND IS COMBATIVE AT TIMES. RT BUTTOCK STAGE II ULCER NOTED TO BE PRESENT ON ADMISSION. LEFT BUTTOCK SCARRING/STAINING OF SKIN NOTED. SARA SCORE IS 17. RECOMMEND ISOFLEX LOW AIRLOSS BED, TO BE PLACED WHEN AVAILABLE. DISCUSSED ALL SKIN PROTECTION AND WOUND RECOMMENDATIONS WITH NURSING STAFF. WILL SEE PRN. BAILEY IN AGREEMENT WITH PLAN OF CARE. Addendum: 12/15/16 at 1122 by MARY WALLER WNDNU Amended: Links added.
[2016-12-15] MEDS ORDERED: SECONDARY IV SET 1 EA INFUS.SET MC ONE ×2 (11:55→16:15)
--- NOTE | 2016-12-15 12:00 | NUR ---
PT. PLACED ON ISOFLEX BED.
[2016-12-15] MEDS: Magnesium 1GM/D5W 100ML PREMIX 100 ML IV SCH ×2 (12:09→13:24)
[2016-12-15] MEDS: INSULIN REGULAR, HUMAN 100 UNIT/ML 3 ML VIAL SQ PRN ×2 (12:18→21:43)
--- NOTE | 2016-12-15 13:00 | NUR ---
PULLED OUT IV RT. ARM,NEW ANGIO PLACED RT. FOREARM.
--- NOTE | 2016-12-15 14:50 | NUR ---
GIVEN ATIVAN 1 MG. IM AT THIS TIME.
[2016-12-15] MEDS ORDERED: LORAZEPAM INJ 2 MG/ML VIAL IM ONE (15:00)
[2016-12-15 16:00] VITALS: BP 145/54
[2016-12-15] MEDS: CEFTRIAXONE 1 G in IV D5W 50 ML IV SCH (16:15)
--- NOTE | 2016-12-15 16:40 | NUR ---
MG. REPLACEMENT DONE IV.
[2016-12-15] MEDS: HYDROGEL DRESSING 90 GM TUBE TP PRN ×3 (17:58→18:00)
[2016-12-15] MEDS: LOSARTAN POTASSIUM 50 MG TABLET PO SCH (17:58)
--- NOTE | 2016-12-15 18:00 | NUR ---
SON IN TO VISIT SEVERAL TIMES.
[2016-12-15] MEDS: HYDROGEL DRESSING 90 GM TUBE TP SCH (18:01)
--- NOTE | 2016-12-15 19:45 | NUR ---
MS RN NOTE PATIENT RECEIVED AWAKE AND ALERT X1 IN BED. PT. CONFUSED. SITTER AT BEDSIDE. NO SOB OR RESPIRATORY DISTRESS NOTED. NO S/S OF PAIN. IV SITE ON RIGHT HAND INTACT, WITH NO REDNESS OR INFILTRATION NOTED. BED LOCKED AND IN LOWEST POSITION. SIDE RAILS UP, CALL LIGHT WITHIN REACH. WILL CONTINUE TO MONITOR.
[2016-12-15] MEDS: ENOXAPARIN SODIUM 30 MG/0.3 ML DISP.SYRIN SQ SCH (20:51)
[2016-12-15] MEDS: ATORVASTATIN 10 MG TABLET PO SCH (21:28)
[2016-12-15] MEDS: INSULIN DETEMIR 100 UNIT/ML CARTRIDGE SQ SCH (21:43)
[2016-12-15 22:00] VITALS: BP 136/64
[2016-12-16] MEDS: IV NS 0.9% 1,000 ML IV PRN (04:34)
--- NOTE | 2016-12-16 06:35 | NUR ---
MS RN CLOSING NOTES PT IS IN BED SLEEPING. SLEPT THROUGHOUT THE NIGHT, NO PRN MEDICATIONS NEEDED. NO SIGNS OF SOB OR PAIN NOTED. SNACKS WERE GIVEN BEFORE BEDTIME AND BLOOD SUGAR AT 0630 WAS 125, NO COVERAGE WAS NEEDED. WILL ENDORSE TO AQUACULTURE FARMER.
[2016-12-16] MEDS: BLOOD SUGAR DIAGNOSTIC 1 EACH STRIP IN SCH ×4 (07:30→21:21)
[2016-12-16 08:00] VITALS: BP 156/73
[2016-12-16 08:06] LABS: BASOPHILS % (AUTO) 0.5 % (0.0-2.0); EOSINOPHILS # (AUTO) 0.1 /CMM (0.0-0.7); EOSINOPHILS % (AUTO) 2.4 % (0.0-6.0); HEMATOCRIT 34 % (33-45); HEMOGLOBIN 11.5 g/dL (11.5-14.8); LYMPHOCYTES # (AUTO) 1.1 /CMM (0.8-4.8); LYMPHOCYTES % (AUTO) 19.9 % (20.0-44.0); MEAN CORPUSCULAR HEMOGLOBIN 29 PG (26.0-33.0); MEAN CORPUSCULAR HGB CONC 34 g/dl (31.0-36.0); MEAN CORPUSCULAR VOLUME 85 fL (82-100); MONOCYTES # (AUTO) 0.3 /CMM (0.1-1.30); MONOCYTES % (AUTO) 6.1 % (2.0-12.0); NEUTROPHILS # (AUTO) 4.1 /CMM (1.8-8.9); NEUTROPHILS % (AUTO) 71.1 % (43.0-81.0); PLATELET COUNT (AUTO) 254 /CMM (150-450); RDW COEFFICIENT OF VARIATION 15.1 (11.5-15.0); RED BLOOD CELL COUNT(AUTO) 4.01 MIL/uL (4.0-5.2); WHITE BLOOD COUNT (AUTO) 5.7 K/uL (4.3-11.0)
[2016-12-16 08:14] LABS: CALCIUM, SERUM 8.5 mg/dL (8.5-10.1); CARBON DIOXIDE 23 mmol/L (21-32); CHLORIDE 107 mmol/L (98-107); CREATININE 0.8 mg/dL (0.6-1.3); GLUCOSE 113 mg/dL (74-106); POTASSIUM 3.9 mmol/L (3.5-5.1); SODIUM SERUM 142 mmol/L (136-145); UREA NITROGEN, BLOOD 15 mg/dL (7-18)
[2016-12-16 08:19] LABS: ALANINE AMINOTRANSFERASE 16 U/L (12-78); ALKALINE PHOSPHATASE 65 U/L (46-116); ASPARTATE AMINOTRANSFERASE 21 U/L (15-37); BILIRUBIN,TOTAL 0.4 mg/dL (0.2-1.0); PHOSPHORUS 3.4 mg/dL (2.5-4.9); TOTAL PROTEIN, SERUM 7.4 g/dL (6.4-8.2)
[2016-12-16] MEDS: AMLODIPINE BESYLATE 10 MG TABLET PO SCH (11:17)
[2016-12-16] MEDS: METOPROLOL SUCCINATE 50 MG TAB.SR.24H PO SCH (11:17)
[2016-12-16] MEDS: ASPIRIN 81 MG TAB.CHEW PO SCH (11:17)
[2016-12-16] MEDS: LOSARTAN POTASSIUM 50 MG TABLET PO SCH (11:18)
[2016-12-16] MEDS: METFORMIN 500 MG TABLET PO SCH ×2 (11:19→16:39)
[2016-12-16] MEDS: HYDROGEL DRESSING 90 GM TUBE TP PRN (11:19)
[2016-12-16] MEDS: HYDROGEL DRESSING 90 GM TUBE TP SCH (11:20)
[2016-12-16] MEDS: LORAZEPAM INJ 2 MG/ML VIAL IV PRN ×2 (11:22→16:02)
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
[2016-12-16] MEDS: CEFTRIAXONE 1 G in IV D5W 50 ML IV SCH (13:04)
[2016-12-16] MEDS: INSULIN REGULAR, HUMAN 100 UNIT/ML 3 ML VIAL SQ PRN ×3 (13:23→21:29)
[2016-12-16 14:17] LABS: *SPE A/G RATIO 0.9 (0.7-1.7); *SPE ALBUMIN 3.8 g/dL (2.9-4.4); *SPE ALPHA-1-GLOBULIN 0.3 g/dL (0.0-0.4); *SPE BETA GLOBULIN 1.1 g/dL (0.7-1.3); *SPE GLOBULIN, TOTAL 4.1 g/dL (2.2-3.9); *SPE M-SPIKE Not Observed g/dL (Not Observed); *SPE PROTEIN TOTAL 7.9 g/dL (6.0-8.5); *SPEGAMMA GLOBULIN 1.7 g/dL (0.4-1.8)
[2016-12-16 16:00] VITALS: BP 155/78
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
--- NOTE | 2016-12-16 19:45 | NUR ---
MS RN NOTE PATIENT RECEIVED AWAKE AND ALERT X1 IN BED. PT. CONFUSED. SITTER AT BEDSIDE. NO SOB OR RESPIRATORY DISTRESS NOTED. NO S/S OF PAIN. IV SITE ON RIGHT HAND INTACT, WITH NO REDNESS OR INFILTRATION NOTED, INFUSING WELL. BED LOCKED AND IN LOWEST POSITION. SIDE RAILS UP, CALL LIGHT WITHIN REACH. WILL CONTINUE TO MONITOR.
[2016-12-16] MEDS: ENOXAPARIN SODIUM 30 MG/0.3 ML DISP.SYRIN SQ SCH (20:01)
[2016-12-16 20:19] VITALS: BP 136/67
[2016-12-16] MEDS: ATORVASTATIN 10 MG TABLET PO SCH (21:21)
[2016-12-16] MEDS: INSULIN DETEMIR 100 UNIT/ML CARTRIDGE SQ SCH (21:29)
--- NOTE | 2016-12-16 21:50 | NUR ---
GLUCOSE BS WAS 185, 3 UNITS OF INSULIN WERE GIVEN. LEVEMIR WAS ADMINISTERED. PT WAS GIVEN PUDDING AND APPLE JUICE TO PREVENT HYPOGLYCEMIA. WILL CONTINUE TO MONITOR FOR S/S OF HYPOGLYCEMIA.
--- NOTE | 2016-12-16 22:20 | NUR ---
ECHOCARDIOGRAM WAS COMPLETED
[2016-12-17] MEDS: IV NS 0.9% 1,000 ML IV PRN (03:35)
--- NOTE | 2016-12-17 06:33 | NUR ---
MS RN CLOSING NOTE PT IS IN BED AWAKE AND ALERT. SLEPT THROUGHOUT THE NIGHT, NO PRN MEDICATIONS NEEDED. NO SIGNS OF SOB OR PAIN NOTED. SNACKS WERE GIVEN BEFORE BEDTIME AFTER INSULIN AND LEVEMIR WERE ADMINISTERED, AT 0630 BS WAS 114- NO COVERAGE NEEDED. ECHOCARDIOGRAM WAS DONE. WILL ENDORSE TO SUPERVISORY INVESTIGATIVE SPECIALIST.
[2016-12-17 06:36] LABS: BASOPHILS % (AUTO) 0.6 % (0.0-2.0); EOSINOPHILS # (AUTO) 0.2 /CMM (0.0-0.7); HEMATOCRIT 34 % (33-45); HEMOGLOBIN 11.2 g/dL (11.5-14.8); LYMPHOCYTES # (AUTO) 1.6 /CMM (0.8-4.8); LYMPHOCYTES % (AUTO) 29.1 % (20.0-44.0); MEAN CORPUSCULAR HEMOGLOBIN 29 PG (26.0-33.0); MEAN CORPUSCULAR HGB CONC 33 g/dl (31.0-36.0); MEAN CORPUSCULAR VOLUME 86 fL (82-100); MONOCYTES # (AUTO) 0.5 /CMM (0.1-1.30); MONOCYTES % (AUTO) 8.3 % (2.0-12.0); NEUTROPHILS # (AUTO) 3.3 /CMM (1.8-8.9); PLATELET COUNT (AUTO) 250 /CMM (150-450); RDW COEFFICIENT OF VARIATION 14.9 (11.5-15.0); RED BLOOD CELL COUNT(AUTO) 3.91 MIL/uL (4.0-5.2); WHITE BLOOD COUNT (AUTO) 5.5 K/uL (4.3-11.0)
[2016-12-17 06:53] LABS: ALANINE AMINOTRANSFERASE 16 U/L (12-78); ALBUMIN 2.9 g/dL (3.4-5.0); ALKALINE PHOSPHATASE 62 U/L (46-116); ASPARTATE AMINOTRANSFERASE 19 U/L (15-37); BILIRUBIN,TOTAL 0.4 mg/dL (0.2-1.0); CALCIUM, SERUM 8.5 mg/dL (8.5-10.1); CARBON DIOXIDE 30 mmol/L (21-32); CHLORIDE 108 mmol/L (98-107); CREATININE 0.8 mg/dL (0.6-1.3); GLUCOSE 107 mg/dL (74-106); MAGNESIUM 1.8 mg/dL (1.8-2.4); PHOSPHORUS 3.6 mg/dL (2.5-4.9); POTASSIUM 3.9 mmol/L (3.5-5.1); SODIUM SERUM 143 mmol/L (136-145); TOTAL PROTEIN, SERUM 7.2 g/dL (6.4-8.2); UREA NITROGEN, BLOOD 17 mg/dL (7-18)
[2016-12-17] MEDS: BLOOD SUGAR DIAGNOSTIC 1 EACH STRIP IN SCH ×2 (07:15→12:13)
--- NOTE | 2016-12-17 07:33 | NUR ---
MS RN OPENING NOTES RECEIVED PATIENT IN BED AWAKE AND ALERT WITH SITTER AT BEDSIDE. NO S/S OF PAIN OR DISCOMFORTS NOTED AT THIS TIME. ON ROOM AIR, RESPIRATION EVEN WITH NO SOB NOTED. IV ACCESS ON RIGHT FA INTACT AND PATENT WITH IVF OF NS @ 75ML/HR INFUSING WELL, NO SIGNS OF INFILTRATION NOTED. BED AT LOWEST POSITION, LOCKED WITH SIDE-RAILS UP APPROPRIATE. CALL LIGHT WITHIN REACH. ALL SAFETY PRECAUTIONS MAINTAINED. WILL CONTINUE TO MONITOR ACCORDINGLY.
[2016-12-17 08:00] VITALS: BP 127/62
[2016-12-17] MEDS: METFORMIN 500 MG TABLET PO SCH (08:19)
[2016-12-17] MEDS: LOSARTAN POTASSIUM 50 MG TABLET PO SCH (08:20)
[2016-12-17] MEDS: AMLODIPINE BESYLATE 10 MG TABLET PO SCH (08:20)
[2016-12-17] MEDS: ASPIRIN 81 MG TAB.CHEW PO SCH (08:20)
[2016-12-17 08:21] VITALS: BP 127/62
[2016-12-17] MEDS: HYDROGEL DRESSING 90 GM TUBE TP SCH (08:21)
[2016-12-17] MEDS: METOPROLOL SUCCINATE 50 MG TAB.SR.24H PO SCH (08:21)
--- NOTE | 2016-12-17 10:41 | NUR ---
RN NOTES PT TO BE DISCHARGED TODAY, CALLED SON YOVANY TIMMONS AND SAID THAT HE WILL COME TO PICK-UP PT B/W 1400-1500H, ALSO REQUESTED TO HAVE PT TAKE PNA VACCINE.
[2016-12-17] MEDS: LORAZEPAM INJ 2 MG/ML VIAL IV PRN (10:58)
[2016-12-17] MEDS: CEFTRIAXONE 1 G in IV D5W 50 ML IV SCH (12:09)
[2016-12-17] MEDS: INSULIN REGULAR, HUMAN 100 UNIT/ML 3 ML VIAL SQ PRN (12:19)
[2016-12-17] MEDS ORDERED: PNEUMOCOCCAL 23-VAL P-SAC VAC 0.5 ML VIAL SQ ONE (13:00)
--- NOTE | 2016-12-17 15:34 | NUR ---
RN DISCHARGED NOTES PATIENT DISCHARGED HOME AND LEFT UNIT IN STABLE CONDITION AT 1330H VIA WHEELCHAIR ACCOMPANIED BY FAMILY. ALERT AND ORIENTED X2, NO SIGNS OF PAIN OR DISCOMFORTS AT TIME OF DISCHARGE. PNEUMO VACCINE GIVEN. V/S TAKEN AND RECORDED. PHOTOS OF SKIN WOUNDS TAKEN AND FILED ON CHART. PATIENT ADMITTED WITH NO BELONGINGS, FORMED UN-ABLE TO SIGN BY PT SO 2 STAFF SIGNED THE FORM AND FILED ON CHART. HEALTH TEACHINGS GIVEN TO FAMILY AND VERBALIZED UNDERSTANDING. MD AND CHARGE NURSE AWARE OF DISCHARGE.
== END 2016-12-17 15:41 | disposition home health service (06) | DRG 682 ==
LOC: ER 10:47 → MED 12:42
PROVIDERS: ADMIT Nurse Practitioner Acute Care; ATTEND Nurse Practitioner Acute Care
DX: N17.0 Acute kidney failure with tubular necrosis (principal); G93.40 Encephalopathy, unspecified; L89.314 Pressure ulcer of right buttock, stage 4; N39.0 Urinary tract infection, site not specified; E78.5 Hyperlipidemia, unspecified; F02.80 Dementia in other diseases classified elsewhere, unspecified severity, without behavioral disturbance, psychotic disturbance, mood disturbance, and anxiety; G30.9 Alzheimer's disease, unspecified; I25.10 Atherosclerotic heart disease of native coronary artery without angina pectoris; M54.30 Sciatica, unspecified side; K21.9 Gastro-esophageal reflux disease without esophagitis; E11.65 Type 2 diabetes mellitus with hyperglycemia; Z87.440 Personal history of urinary (tract) infections; S40.021A Contusion of right upper arm, initial encounter; B96.20 Unspecified Escherichia coli [E. coli] as the cause of diseases classified elsewhere; E86.0 Dehydration
CPT/HCPCS: 36415; 71010-TC; 80048-TC; 80053-TC; 80061-TC; 80076-TC; 81000-TC; 82962-TC; 83605-TC; 83735-TC; 84100-TC; 84155; 84165; 84443-TC; 84484-TC; 85025-TC; 85730-TC; 87040-TC; 87081-TC; 87086-TC; 87186-TC; 90732; 93307-TC; 97001-TC; A4606; A6248; J0696; J1650; J1815; J2060; J3475; J7030; J7040; J7060; Z7610

== ENCOUNTER 2017-06-09 12:01 | Inpatient (IN) | payer MEDICARE, MEDICAID ==
[~2017-06-09] VITALS: Ht 172.7 cm; Wt 61.5 kg
[~2017-06-09 12:01] MED LIST changes: +ASPI-1169 PO; -ASPI81TA2 PO; -Blood Sugar Diagnostic VI
[2017-06-09 13:34] LABS: BASOPHILS % (AUTO) 0.4 % (0.0-2.0); EOSINOPHILS # (AUTO) 0.1 /CMM (0.0-0.7); EOSINOPHILS % (AUTO) 1.5 % (0.0-6.0); HEMATOCRIT 42 % (33-45); HEMOGLOBIN 13.8 g/dL (11.5-14.8); LYMPHOCYTES # (AUTO) 1.5 /CMM (0.8-4.8); LYMPHOCYTES % (AUTO) 19.4 % (20.0-44.0); MEAN CORPUSCULAR HEMOGLOBIN 28 PG (26.0-33.0); MEAN CORPUSCULAR HGB CONC 33 g/dl (31.0-36.0); MEAN CORPUSCULAR VOLUME 86 fL (82-100); MONOCYTES # (AUTO) 0.5 /CMM (0.1-1.30); MONOCYTES % (AUTO) 6.8 % (2.0-12.0); NEUTROPHILS # (AUTO) 5.5 /CMM (1.8-8.9); NEUTROPHILS % (AUTO) 71.9 % (43.0-81.0); PLATELET COUNT (AUTO) 289 /CMM (150-450); RDW COEFFICIENT OF VARIATION 14.4 (11.5-15.0); RED BLOOD CELL COUNT(AUTO) 4.85 MIL/uL (4.0-5.2); WHITE BLOOD COUNT (AUTO) 7.6 K/uL (4.3-11.0)
[2017-06-09 13:56] LABS: INR 0.96 (0.87-1.13)
[2017-06-09 13:57] LABS: CALCIUM, SERUM 9.6 mg/dL (8.5-10.1); CARBON DIOXIDE 23 mmol/L (21-32); CHLORIDE 108 mmol/L (98-107); CREATININE 1.3 mg/dL (0.6-1.3); POTASSIUM 4.7 mmol/L (3.5-5.1); SODIUM SERUM 143 mmol/L (136-145); UREA NITROGEN, BLOOD 42 mg/dL (7-18)
[2017-06-09 14:00] LABS: GLUCOSE 382 mg/dL (74-106)
[2017-06-09 14:03] LABS: TROPONIN I < 0.017 ng/mL (0.00-0.056)
[2017-06-09] MEDS ORDERED: IV NS 0.9% 1,000 ML BAG IV ONE ×2 (14:30)
[2017-06-09] MEDS ORDERED: MAGNESIUM HYDROXIDE 30 ML UDC PO PRN (14:30)
[2017-06-09] MEDS ORDERED: MAG HYDROX/AL HYDROX/SIMETH 30 ML UDC PO PRN (14:30)
[2017-06-09] MEDS ORDERED: HYDROCODONE/APAP 5/325MG 1 EACH TABLET PO PRN (14:30)
[2017-06-09] MEDS ORDERED: ACETAMINOPHEN 325 MG TABLET PO PRN (14:30)
[2017-06-09] MEDS ORDERED: ONDANSETRON HCL/PF 4 MG/2 ML VIAL IVP PRN (14:30)
[2017-06-09 14:35] LABS: APPEARANCE,URINE CLOUDY (CLEAR); BILIRUBIN,URINE NEGATIVE (NEGATIVE); BLOOD, URINE 1+ Ery/uL (NEGATIVE); COLOR,URINE YELLOW (YELLOW); KETONES,URINE NEGATIVE (NEGATIVE); LEUKOCYTE ESTERASE ,URINE 2+ (NEGATIVE); NITRITE, URINE NEGATIVE (NEGATIVE); PROTEIN,URINE 1+ mg/dl (NEGATIVE); UGLUCOSE 1+ mg/dL (NEGATIVE); UROBILINOGEN,URINE 0.2 EU/dL (0.2)
[2017-06-09 14:54] LABS: BACTERIA,URINE Many /HPF (None Seen); SQUAMOUS EPITHELIAL CELL,UR Few /HPF (None Seen); WBC,URINE 21-50 /HPF (0-3)
[2017-06-09] MEDS: AMLODIPINE BESYLATE 10 MG TABLET PO SCH (15:30)
[2017-06-09] MEDS: ENOXAPARIN SODIUM 30 MG/0.3 ML DISP.SYRIN SQ SCH (15:30)
[2017-06-09] MEDS ORDERED: CEFTRIAXONE 1 G in IV D5W 50 ML IV SCH (15:30)
[2017-06-09 16:00] VITALS: BP 126/84
[2017-06-09] MEDS: CEFTRIAXONE 1 G in IV D5W 50 ML IV SCH (16:30)
[2017-06-09] MEDS: METFORMIN 500 MG TABLET PO SCH (17:00)
[2017-06-09 20:00] VITALS: BP 141/82
[2017-06-09] MEDS: IV NS 0.9% 1,000 ML IV PRN (22:42)
[2017-06-10] VITALS: BP 131/69
[2017-06-10 04:00] VITALS: BP 128/70
[2017-06-10 07:24] LABS: BASOPHILS % (AUTO) 0.7 % (0.0-2.0); EOSINOPHILS # (AUTO) 0.1 /CMM (0.0-0.7); EOSINOPHILS % (AUTO) 2.8 % (0.0-6.0); HEMATOCRIT 38 % (33-45); HEMOGLOBIN 12.5 g/dL (11.5-14.8); LYMPHOCYTES # (AUTO) 1.9 /CMM (0.8-4.8); LYMPHOCYTES % (AUTO) 42.5 % (20.0-44.0); MEAN CORPUSCULAR HEMOGLOBIN 28 PG (26.0-33.0); MEAN CORPUSCULAR HGB CONC 33 g/dl (31.0-36.0); MEAN CORPUSCULAR VOLUME 86 fL (82-100); MONOCYTES # (AUTO) 0.5 /CMM (0.1-1.30); MONOCYTES % (AUTO) 10.7 % (2.0-12.0); NEUTROPHILS % (AUTO) 43.3 % (43.0-81.0); PLATELET COUNT (AUTO) 240 /CMM (150-450); RDW COEFFICIENT OF VARIATION 14.3 (11.5-15.0); RED BLOOD CELL COUNT(AUTO) 4.44 MIL/uL (4.0-5.2); WHITE BLOOD COUNT (AUTO) 4.5 K/uL (4.3-11.0)
[2017-06-10 07:32] LABS: CHOLESTEROL 146 mg/dL (<200); HDL CHOLESTEROL 54 mg/dL (40-60); LDL 80 mg/dL (0-99); TRIGLYCERIDES 89 mg/dL (30-150)
[2017-06-10 08:00] VITALS: BP 146/77
[2017-06-10 08:27] LABS: ALANINE AMINOTRANSFERASE 15 U/L (12-78); ALBUMIN 3.3 g/dL (3.4-5.0); ALKALINE PHOSPHATASE 79 U/L (46-116); ASPARTATE AMINOTRANSFERASE 22 U/L (15-37); BILIRUBIN,TOTAL 0.5 mg/dL (0.2-1.0); CALCIUM, SERUM 9.2 mg/dL (8.5-10.1); CARBON DIOXIDE 21 mmol/L (21-32); CHLORIDE 109 mmol/L (98-107); CREATININE 1.2 mg/dL (0.6-1.3); GLUCOSE 342 mg/dL (74-106); MAGNESIUM 1.7 mg/dL (1.8-2.4); POTASSIUM 4.3 mmol/L (3.5-5.1); SODIUM SERUM 143 mmol/L (136-145); TOTAL PROTEIN, SERUM 8.1 g/dL (6.4-8.2); UREA NITROGEN, BLOOD 34 mg/dL (7-18)
[2017-06-10] MEDS: ASPIRIN 81 MG TAB.CHEW PO SCH (08:48)
[2017-06-10] MEDS: ATORVASTATIN 10 MG TABLET PO SCH (08:48)
[2017-06-10] MEDS: METFORMIN 500 MG TABLET PO SCH ×2 (08:48→18:13)
[2017-06-10] MEDS: LOSARTAN POTASSIUM 50 MG TABLET PO SCH (08:49)
[2017-06-10] MEDS: AMLODIPINE BESYLATE 10 MG TABLET PO SCH (08:49)
[2017-06-10] MEDS: METOPROLOL SUCCINATE 50 MG TAB.SR.24H PO SCH (08:50)
[2017-06-10] MEDS: ENOXAPARIN SODIUM 30 MG/0.3 ML DISP.SYRIN SQ SCH (08:51)
[2017-06-10 12:00] VITALS: BP 139/70
[2017-06-10] MEDS: Magnesium 1GM/D5W 100ML PREMIX 100 ML IV SCH ×2 (12:32→12:33)
[2017-06-10 16:00] VITALS: BP 143/68
[2017-06-10] MEDS ORDERED: INSULIN REGULAR, HUMAN 100 UNIT/ML 10 ML VIAL IV ONE (16:00)
[2017-06-10] MEDS ORDERED: DEXTROSE 50%-WATER 50 ML DISP.SYRIN IV PRN (17:00)
[2017-06-10] MEDS ORDERED: BLOOD SUGAR DIAGNOSTIC 1 EACH STRIP IN SCH (17:30)
[2017-06-10] MEDS: INSULIN REGULAR, HUMAN 100 UNIT/ML 3 ML VIAL SQ PRN ×3 (18:09→21:37)
[2017-06-10] MEDS: CEFTRIAXONE 1 G in IV D5W 50 ML IV SCH (18:12)
[2017-06-10] MEDS: BLOOD SUGAR DIAGNOSTIC 1 EACH STRIP IN SCH ×2 (18:12→21:36)
[2017-06-10 20:00] VITALS: BP 113/57
[2017-06-11] VITALS: BP 115/62
[2017-06-11 04:00] VITALS: BP 137/69
[2017-06-11] MEDS: IV NS 0.9% 1,000 ML IV PRN (04:06)
[2017-06-11 06:56] LABS: CALCIUM, SERUM 9.5 mg/dL (8.5-10.1); CARBON DIOXIDE 25 mmol/L (21-32); CHLORIDE 108 mmol/L (98-107); CREATININE 1.2 mg/dL (0.6-1.3); GLUCOSE 197 mg/dL (74-106); MAGNESIUM 2.1 mg/dL (1.8-2.4); POTASSIUM 4.4 mmol/L (3.5-5.1); SODIUM SERUM 143 mmol/L (136-145); UREA NITROGEN, BLOOD 33 mg/dL (7-18)
[2017-06-11] MEDS: BLOOD SUGAR DIAGNOSTIC 1 EACH STRIP IN SCH ×4 (07:26→22:01)
[2017-06-11] MEDS: INSULIN REGULAR, HUMAN 100 UNIT/ML 3 ML VIAL SQ PRN ×5 (07:28→22:03)
[2017-06-11 08:00] VITALS: BP 139/60
[2017-06-11] MEDS: METFORMIN 500 MG TABLET PO SCH ×2 (10:25→16:44)
[2017-06-11] MEDS: ATORVASTATIN 10 MG TABLET PO SCH (10:26)
[2017-06-11] MEDS: AMLODIPINE BESYLATE 10 MG TABLET PO SCH (10:26)
[2017-06-11] MEDS: LOSARTAN POTASSIUM 50 MG TABLET PO SCH (10:26)
[2017-06-11] MEDS: METOPROLOL SUCCINATE 50 MG TAB.SR.24H PO SCH (10:27)
[2017-06-11] MEDS: ASPIRIN 81 MG TAB.CHEW PO SCH (10:27)
[2017-06-11] MEDS: ENOXAPARIN SODIUM 30 MG/0.3 ML DISP.SYRIN SQ SCH (10:29)
[2017-06-11 12:00] VITALS: BP 132/62
[2017-06-11 16:25] VITALS: BP 100/65
[2017-06-11] MEDS: CEFTRIAXONE 1 G in IV D5W 50 ML IV SCH (16:34)
[2017-06-11 20:00] VITALS: BP 124/60
[2017-06-12] VITALS: BP 134/68
[2017-06-12] MEDS: IV NS 0.9% 1,000 ML IV PRN (02:36)
[2017-06-12 04:00] VITALS: BP 110/91
[2017-06-12 08:00] VITALS: BP 130/75
[2017-06-12] MEDS: BLOOD SUGAR DIAGNOSTIC 1 EACH STRIP IN SCH ×4 (08:45→21:31)
[2017-06-12] MEDS: INSULIN REGULAR, HUMAN 100 UNIT/ML 3 ML VIAL SQ PRN ×4 (08:47→21:42)
[2017-06-12] MEDS: ATORVASTATIN 10 MG TABLET PO SCH (08:48)
[2017-06-12] MEDS: AMLODIPINE BESYLATE 10 MG TABLET PO SCH (08:48)
[2017-06-12] MEDS: LOSARTAN POTASSIUM 50 MG TABLET PO SCH (08:48)
[2017-06-12] MEDS: METOPROLOL SUCCINATE 50 MG TAB.SR.24H PO SCH (08:48)
[2017-06-12] MEDS: ASPIRIN 81 MG TAB.CHEW PO SCH (08:49)
[2017-06-12] MEDS: METFORMIN 500 MG TABLET PO SCH ×2 (08:49→16:33)
[2017-06-12] MEDS: ENOXAPARIN SODIUM 30 MG/0.3 ML DISP.SYRIN SQ SCH (08:50)
[2017-06-12 12:00] VITALS: BP 111/60
[2017-06-12] MEDS: MUPIROCIN OINT 2% 22 GM TUBE SCH ×2 (14:49→21:31)
[2017-06-12] MEDS: CEFTRIAXONE 1 G in IV D5W 50 ML IV SCH (15:30)
[2017-06-12 16:00] VITALS: BP 117/61
[2017-06-12 20:00] VITALS: BP 134/122
[2017-06-12] MEDS: ZOLPIDEM TARTRATE 5 MG TABLET PO PRN (21:42)
[2017-06-13] VITALS: BP 154/73
[2017-06-13 04:00] VITALS: BP 137/78
[2017-06-13 08:00] VITALS: BP 131/82
[2017-06-13] MEDS: BLOOD SUGAR DIAGNOSTIC 1 EACH STRIP IN SCH ×4 (08:15→22:29)
[2017-06-13] MEDS: AMLODIPINE BESYLATE 10 MG TABLET PO SCH (08:40)
[2017-06-13] MEDS: ATORVASTATIN 10 MG TABLET PO SCH (08:40)
[2017-06-13] MEDS: METFORMIN 500 MG TABLET PO SCH ×2 (08:40→16:57)
[2017-06-13] MEDS: ASPIRIN 81 MG TAB.CHEW PO SCH (08:40)
[2017-06-13] MEDS: LOSARTAN POTASSIUM 50 MG TABLET PO SCH (08:40)
[2017-06-13] MEDS: IV NS 0.9% 1,000 ML IV PRN ×2 (08:44→20:56)
[2017-06-13] MEDS: ENOXAPARIN SODIUM 30 MG/0.3 ML DISP.SYRIN SQ SCH (08:44)
[2017-06-13] MEDS: Z GUARD REMEDY 2 OZ OINT TP PRN ×2 (08:51→17:06)
[2017-06-13] MEDS: INSULIN REGULAR, HUMAN 100 UNIT/ML 3 ML VIAL SQ PRN ×4 (08:56→22:26)
[2017-06-13] MEDS: MUPIROCIN OINT 2% 22 GM TUBE SCH ×2 (08:57→20:59)
[2017-06-13] MEDS: METOPROLOL SUCCINATE 50 MG TAB.SR.24H PO SCH (09:00)
[2017-06-13] MEDS: DIVALPROEX SODIUM 125 MG CAP.SPRINK PO SCH ×2 (15:07→21:01)
[2017-06-13] MEDS: CEFTRIAXONE 1 G in IV D5W 50 ML IV SCH (15:34)
[2017-06-13 16:00] VITALS: BP 117/80
[2017-06-13 20:00] VITALS: BP 138/98
[2017-06-13] MEDS ORDERED: INSULIN GLARGINE, 100 UNIT/ML CARTRIDGE SQ SCH (22:00)
[2017-06-13] MEDS: INSULIN DETEMIR 100 UNIT/ML CARTRIDGE SQ SCH (22:25)
[2017-06-14 04:00] VITALS: BP 158/71
[2017-06-14 08:00] VITALS: BP 154/67
[2017-06-14] MEDS: BLOOD SUGAR DIAGNOSTIC 1 EACH STRIP IN SCH ×4 (08:36→22:16)
[2017-06-14] MEDS: LOSARTAN POTASSIUM 50 MG TABLET PO SCH (08:37)
[2017-06-14] MEDS: AMLODIPINE BESYLATE 10 MG TABLET PO SCH (08:37)
[2017-06-14] MEDS: ASPIRIN 81 MG TAB.CHEW PO SCH (08:37)
[2017-06-14] MEDS: DIVALPROEX SODIUM 125 MG CAP.SPRINK PO SCH ×3 (08:37→16:38)
[2017-06-14] MEDS: METFORMIN 500 MG TABLET PO SCH ×2 (08:37→16:38)
[2017-06-14] MEDS: ATORVASTATIN 10 MG TABLET PO SCH (08:37)
[2017-06-14] MEDS: MUPIROCIN OINT 2% 22 GM TUBE SCH ×2 (08:38→21:00)
[2017-06-14] MEDS: ENOXAPARIN SODIUM 30 MG/0.3 ML DISP.SYRIN SQ SCH (08:46)
[2017-06-14] MEDS: METOPROLOL SUCCINATE 50 MG TAB.SR.24H PO SCH (08:47)
[2017-06-14] MEDS: Z GUARD REMEDY 2 OZ OINT TP PRN (08:48)
[2017-06-14] MEDS: INSULIN REGULAR, HUMAN 100 UNIT/ML 3 ML VIAL SQ PRN ×4 (08:52→21:35)
[2017-06-14 16:00] VITALS: BP 144/57
[2017-06-14] MEDS ORDERED: LEVOFLOXACIN (500MG) 500 MG TABLET PO SCH (16:00)
[2017-06-14] MEDS: INSULIN DETEMIR 100 UNIT/ML CARTRIDGE SQ SCH (21:35)
[2017-06-15] MEDS: ZOLPIDEM TARTRATE 5 MG TABLET PO PRN (00:26)
[2017-06-15 04:00] VITALS: BP 126/65
[2017-06-15] MEDS: BLOOD SUGAR DIAGNOSTIC 1 EACH STRIP IN SCH (07:19)
[2017-06-15 08:00] VITALS: BP_SYST 138; BP_SYST 140; BP_DIAS 68; BP_DIAS 69
[2017-06-15] MEDS: DIVALPROEX SODIUM 125 MG CAP.SPRINK PO SCH ×2 (09:00→09:05)
[2017-06-15] MEDS: METFORMIN 500 MG TABLET PO SCH ×2 (09:00→09:05)
[2017-06-15] MEDS: AMLODIPINE BESYLATE 10 MG TABLET PO SCH ×2 (09:00→09:05)
[2017-06-15] MEDS: LOSARTAN POTASSIUM 50 MG TABLET PO SCH ×2 (09:00→09:05)
[2017-06-15] MEDS: METOPROLOL SUCCINATE 50 MG TAB.SR.24H PO SCH ×2 (09:00→09:05)
[2017-06-15] MEDS: ATORVASTATIN 10 MG TABLET PO SCH ×2 (09:00→09:04)
[2017-06-15] MEDS: ASPIRIN 81 MG TAB.CHEW PO SCH ×2 (09:00→09:04)
[2017-06-15] MEDS: MUPIROCIN OINT 2% 22 GM TUBE SCH (09:01)
[2017-06-15] MEDS: Z GUARD REMEDY 2 OZ OINT TP PRN (09:02)
[2017-06-15] MEDS: ENOXAPARIN SODIUM 30 MG/0.3 ML DISP.SYRIN SQ SCH (09:08)
== END 2017-06-15 12:24 | disposition home health service (06) | DRG 689 ==
LOC: ER 12:05 → MEDSG1 14:53 → TELE1 16:09 → MEDSG1 06-13 10:02
PROVIDERS: ADMIT Internal Medicine; ATTEND Internal Medicine
DX: N39.0 Urinary tract infection, site not specified (principal); N17.0 Acute kidney failure with tubular necrosis; G93.40 Encephalopathy, unspecified; E11.65 Type 2 diabetes mellitus with hyperglycemia; G30.9 Alzheimer's disease, unspecified; F02.80 Dementia in other diseases classified elsewhere, unspecified severity, without behavioral disturbance, psychotic disturbance, mood disturbance, and anxiety; B96.20 Unspecified Escherichia coli [E. coli] as the cause of diseases classified elsewhere; E78.5 Hyperlipidemia, unspecified; I10 Essential (primary) hypertension; K21.9 Gastro-esophageal reflux disease without esophagitis; Z87.440 Personal history of urinary (tract) infections; Z91.81 History of falling; R53.81 Other malaise; Z79.4 Long term (current) use of insulin
CPT/HCPCS: 36415; 70450-TC; 71010-TC; 80048-TC; 80053-TC; 80061-TC; 81000-TC; 82962-TC; 83735-TC; 84100-TC; 84484-TC; 85025-TC; 85730-TC; 87081-TC; 87086-TC; 87186-TC; J0696; J1650; J1815; J3475; J7030; J7060; Z7610

== ENCOUNTER 2017-09-13 13:20 | Inpatient (IN) | payer MEDICARE, MEDICAID ==
[~2017-09-13] VITALS: Ht 152.4 cm; Wt 60.9 kg
[2017-09-13 13:59] LABS: BASOPHILS # (AUTO) 0.1 /CMM (0.0-0.2); BASOPHILS % (AUTO) 0.9 % (0.0-2.0); EOSINOPHILS # (AUTO) 0.1 /CMM (0.0-0.7); EOSINOPHILS % (AUTO) 1.5 % (0.0-6.0); HEMATOCRIT 35 % (33-45); HEMOGLOBIN 11.9 g/dL (11.5-14.8); LYMPHOCYTES # (AUTO) 1.7 /CMM (0.8-4.8); MEAN CORPUSCULAR HEMOGLOBIN 29 PG (26.0-33.0); MEAN CORPUSCULAR HGB CONC 34 g/dl (31.0-36.0); MEAN CORPUSCULAR VOLUME 86 fL (82-100); MONOCYTES # (AUTO) 0.5 /CMM (0.1-1.30); MONOCYTES % (AUTO) 6.6 % (2.0-12.0); NEUTROPHILS # (AUTO) 4.5 /CMM (1.8-8.9); PLATELET COUNT (AUTO) 254 /CMM (150-450); RDW COEFFICIENT OF VARIATION 13.1 (11.5-15.0); WHITE BLOOD COUNT (AUTO) 6.9 K/uL (4.3-11.0)
[2017-09-13] MEDS ORDERED: IV NS 0.9% 1,000 ML BAG IV ONE (14:00)
[2017-09-13 14:13] LABS: CALCIUM, SERUM 8.4 mg/dL (8.5-10.1); CARBON DIOXIDE 24 mmol/L (21-32); CHLORIDE 103 mmol/L (98-107); CREATININE 1.4 mg/dL (0.6-1.3); GLUCOSE 288 mg/dL (74-106); POTASSIUM 4.1 mmol/L (3.5-5.1); SODIUM SERUM 134 mmol/L (136-145); UREA NITROGEN, BLOOD 36 mg/dL (7-18)
[2017-09-13 14:19] LABS: ALANINE AMINOTRANSFERASE 14 U/L (12-78); ALBUMIN 2.9 g/dL (3.4-5.0); ALKALINE PHOSPHATASE 64 U/L (46-116); ASPARTATE AMINOTRANSFERASE 14 U/L (15-37); BILIRUBIN,DIRECT 0.2 mg/dL (0.0-0.2); BILIRUBIN,TOTAL 0.8 mg/dL (0.2-1.0); TOTAL PROTEIN, SERUM 7.7 g/dL (6.4-8.2)
[2017-09-13 14:21] LABS: TROPONIN I < 0.017 ng/mL (0.00-0.056)
[2017-09-13 14:22] LABS: APPEARANCE,URINE Turbid (CLEAR); BILIRUBIN,URINE Negative (NEGATIVE); BLOOD, URINE Moderate Ery/uL (NEGATIVE); COLOR,URINE Yellow (YELLOW); KETONES,URINE Negative (NEGATIVE); LEUKOCYTE ESTERASE ,URINE Large (NEGATIVE); NITRITE, URINE Negative (NEGATIVE); PH,URINE 5.5 (5.0-8.0); PROTEIN,URINE >=300 mg/dl (NEGATIVE); UGLUCOSE Negative (NEGATIVE); UROBILINOGEN,URINE 0.2 EU/dL (0.2)
[2017-09-13 14:28] LABS: WBC,URINE TOO NUMEROUS TO COUN /HPF (0-3)
[2017-09-13 14:29] LABS: BACTERIA,URINE Many /HPF (None Seen); SQUAMOUS EPITHELIAL CELL,UR Few /HPF (None Seen)
[2017-09-13] MEDS ORDERED: CEFTRIAXONE 1GM BAG (ER ONLY) 50 ML IV ONE ×2 (15:00→15:01)
[2017-09-13] MEDS ORDERED: DEXTROSE 50%-WATER 50 ML DISP.SYRIN IV PRN (16:00)
[2017-09-13] MEDS ORDERED: ONDANSETRON HCL/PF 4 MG/2 ML VIAL IVP PRN (16:00)
[2017-09-13] MEDS ORDERED: MAGNESIUM HYDROXIDE 30 ML UDC PO PRN (16:00)
[2017-09-13] MEDS ORDERED: MAG HYDROX/AL HYDROX/SIMETH 30 ML UDC PO PRN (16:00)
[2017-09-13 16:15] VITALS: BP 140/65
[2017-09-13] MEDS: IV NS 0.9% 1,000 ML IV PRN (17:30)
[2017-09-13] MEDS: BLOOD SUGAR DIAGNOSTIC 1 EACH STRIP VI SCH ×2 (17:30→21:35)
[2017-09-13] MEDS: INSULIN REGULAR, HUMAN 100 UNIT/ML 3 ML VIAL SQ PRN (18:47)
[2017-09-13 20:00] VITALS: BP 121/84
[2017-09-13] MEDS: HYDROCODONE/APAP 5/325MG 1 EACH TABLET PO PRN (21:31)
[2017-09-13] MEDS: ZOLPIDEM TARTRATE 5 MG TABLET PO PRN (21:31)
[2017-09-13] MEDS: *INSULIN REGULAR(HUMULIN R)HUM 100 UNIT/ML VIAL SQ PRN (22:19)
[2017-09-14 04:00] VITALS: BP 110/60
[2017-09-14] MEDS: IV NS 0.9% 1,000 ML IV PRN (06:34)
[2017-09-14] MEDS: INSULIN REGULAR, HUMAN 100 UNIT/ML 3 ML VIAL SQ PRN ×2 (07:59→17:00)
[2017-09-14 08:00] VITALS: BP 131/70
[2017-09-14] MEDS: BLOOD SUGAR DIAGNOSTIC 1 EACH STRIP VI SCH ×4 (08:00→21:41)
[2017-09-14 08:10] LABS: BASOPHILS % (AUTO) 0.5 % (0.0-2.0); EOSINOPHILS # (AUTO) 0.1 /CMM (0.0-0.7); EOSINOPHILS % (AUTO) 2.8 % (0.0-6.0); HEMATOCRIT 34 % (33-45); HEMOGLOBIN 11.3 g/dL (11.5-14.8); LYMPHOCYTES # (AUTO) 1.4 /CMM (0.8-4.8); LYMPHOCYTES % (AUTO) 27.9 % (20.0-44.0); MEAN CORPUSCULAR HEMOGLOBIN 29 PG (26.0-33.0); MEAN CORPUSCULAR HGB CONC 34 g/dl (31.0-36.0); MEAN CORPUSCULAR VOLUME 87 fL (82-100); MONOCYTES # (AUTO) 0.5 /CMM (0.1-1.30); MONOCYTES % (AUTO) 9.4 % (2.0-12.0); NEUTROPHILS # (AUTO) 2.9 /CMM (1.8-8.9); NEUTROPHILS % (AUTO) 59.4 % (43.0-81.0); PLATELET COUNT (AUTO) 232 /CMM (150-450); RDW COEFFICIENT OF VARIATION 14.2 (11.5-15.0); RED BLOOD CELL COUNT(AUTO) 3.87 MIL/uL (4.0-5.2); WHITE BLOOD COUNT (AUTO) 4.9 K/uL (4.3-11.0)
[2017-09-14 08:15] LABS: CALCIUM, SERUM 8.2 mg/dL (8.5-10.1); CARBON DIOXIDE 24 mmol/L (21-32); CHLORIDE 107 mmol/L (98-107); GLUCOSE 138 mg/dL (74-106); MAGNESIUM 1.5 mg/dL (1.8-2.4); PHOSPHORUS 3.1 mg/dL (2.5-4.9); POTASSIUM 3.8 mmol/L (3.5-5.1); SODIUM SERUM 140 mmol/L (136-145); UREA NITROGEN, BLOOD 24 mg/dL (7-18)
[2017-09-14] MEDS ORDERED: HYDROGEL DRESSING 90 GM TUBE TP PRN (08:30)
[2017-09-14] MEDS: HYDROGEL DRESSING 90 GM TUBE TP SCH (09:00)
[2017-09-14] MEDS: Magnesium 1GM/D5W 100ML PREMIX 100 ML IV SCH ×2 (10:00→11:25)
[2017-09-14] MEDS ORDERED: CEFTRIAXONE 1 G in IV D5W 50 ML IV SCH (15:00)
[2017-09-14] MEDS: HYDROCODONE/APAP 5/325MG 1 EACH TABLET PO PRN ×3 (15:26→23:43)
[2017-09-14 16:00] VITALS: BP_SYST 110; BP_SYST 112; BP_DIAS 68; BP_DIAS 76
[2017-09-14] MEDS ORDERED: HALOPERIDOL LACTATE INJ 5 MG/ML VIAL IM ONE (16:00)
[2017-09-14] MEDS: BOOST GLUCOSE CONTROL VANILLA 237 ML BOX PO SCH (17:07)
[2017-09-14] MEDS ORDERED: HALOPERIDOL LACTATE INJ 5 MG/ML VIAL IM PRN (18:00)
[2017-09-14 20:00] VITALS: BP 141/57
[2017-09-14] MEDS: *INSULIN REGULAR(HUMULIN R)HUM 100 UNIT/ML VIAL SQ PRN (21:37)
[2017-09-14] MEDS: ZOLPIDEM TARTRATE 5 MG TABLET PO PRN (23:43)
[2017-09-15] MEDS: IV NS 0.9% 1,000 ML IV PRN (02:33)
[2017-09-15 04:00] VITALS: BP 111/65
[2017-09-15] MEDS: ACETAMINOPHEN 325 MG TABLET PO PRN ×2 (04:20→21:06)
[2017-09-15 08:00] VITALS: BP 143/69
[2017-09-15] MEDS: BOOST GLUCOSE CONTROL VANILLA 237 ML BOX PO SCH ×2 (08:00→16:53)
[2017-09-15 08:10] LABS: CALCIUM, SERUM 8.2 mg/dL (8.5-10.1); CARBON DIOXIDE 18 mmol/L (21-32); CHLORIDE 104 mmol/L (98-107); CREATININE 1.1 mg/dL (0.6-1.3); GLUCOSE 295 mg/dL (74-106); MAGNESIUM 1.8 mg/dL (1.8-2.4); POTASSIUM 4.1 mmol/L (3.5-5.1); SODIUM SERUM 138 mmol/L (136-145); UREA NITROGEN, BLOOD 22 mg/dL (7-18)
[2017-09-15] MEDS: ASCORBIC ACID 500 MG TABLET PO SCH (08:22)
[2017-09-15] MEDS: MULTIVITAMINS,THERAGRAN 1 UDTAB TABLET PO SCH (08:22)
[2017-09-15] MEDS: BLOOD SUGAR DIAGNOSTIC 1 EACH STRIP VI SCH ×4 (08:23→21:31)
[2017-09-15] MEDS: HYDROGEL DRESSING 90 GM TUBE TP SCH (08:24)
[2017-09-15] MEDS: INSULIN REGULAR, HUMAN 100 UNIT/ML 3 ML VIAL SQ PRN ×2 (08:24→11:40)
[2017-09-15 15:04] LABS: BASOPHILS % (AUTO) 0.6 % (0.0-2.0); EOSINOPHILS % (AUTO) 0.9 % (0.0-6.0); HEMATOCRIT 33 % (33-45); HEMOGLOBIN 11.1 g/dL (11.5-14.8); LYMPHOCYTES # (AUTO) 1.1 /CMM (0.8-4.8); LYMPHOCYTES % (AUTO) 23.8 % (20.0-44.0); MEAN CORPUSCULAR HEMOGLOBIN 29 PG (26.0-33.0); MEAN CORPUSCULAR HGB CONC 34 g/dl (31.0-36.0); MEAN CORPUSCULAR VOLUME 85 fL (82-100); MONOCYTES # (AUTO) 0.6 /CMM (0.1-1.30); MONOCYTES % (AUTO) 11.8 % (2.0-12.0); NEUTROPHILS % (AUTO) 62.9 % (43.0-81.0); PLATELET COUNT (AUTO) 269 /CMM (150-450); RDW COEFFICIENT OF VARIATION 14.4 (11.5-15.0); RED BLOOD CELL COUNT(AUTO) 3.83 MIL/uL (4.0-5.2); WHITE BLOOD COUNT (AUTO) 4.7 K/uL (4.3-11.0)
[2017-09-15] MEDS: MEROPENEM 500 MG in IV NS 0.9% 50 ML IV SCH (15:44)
[2017-09-15 16:00] VITALS: BP 155/67
[2017-09-15] MEDS: INSULIN ASPART/LISPRO 100 UNIT/ML CARTRIDGE SQ SCH ×2 (16:54→21:39)
[2017-09-15 20:00] VITALS: BP 165/41
[2017-09-15] MEDS ORDERED: BACITRACIN ZINC OINT PACKET 1 EA PACKET TP SCH (21:00)
[2017-09-15] MEDS ORDERED: MUPIROCIN OINT 2% 22 GM TUBE SCH (21:00)
[2017-09-15] MEDS: MUPIROCIN OINT 2% 22 GM TUBE SCH (21:05)
[2017-09-15] MEDS: *INSULIN REGULAR(HUMULIN R)HUM 100 UNIT/ML VIAL SQ PRN (21:39)
[2017-09-16] MEDS: MEROPENEM 500 MG in IV NS 0.9% 50 ML IV SCH ×2 (02:15→14:45)
[2017-09-16 04:00] VITALS: BP 158/67
[2017-09-16] MEDS: IV NS 0.9% 1,000 ML IV PRN (05:02)
[2017-09-16] MEDS: BLOOD SUGAR DIAGNOSTIC 1 EACH STRIP VI SCH ×4 (07:48→21:51)
[2017-09-16] MEDS: INSULIN ASPART/LISPRO 100 UNIT/ML CARTRIDGE SQ SCH ×4 (07:48→21:58)
[2017-09-16 07:58] LABS: BASOPHILS % (AUTO) 0.5 % (0.0-2.0); EOSINOPHILS # (AUTO) 0.1 /CMM (0.0-0.7); EOSINOPHILS % (AUTO) 1.2 % (0.0-6.0); HEMATOCRIT 37 % (33-45); HEMOGLOBIN 12.3 g/dL (11.5-14.8); LYMPHOCYTES % (AUTO) 16.2 % (20.0-44.0); MEAN CORPUSCULAR HEMOGLOBIN 29 PG (26.0-33.0); MEAN CORPUSCULAR HGB CONC 33 g/dl (31.0-36.0); MEAN CORPUSCULAR VOLUME 87 fL (82-100); MONOCYTES # (AUTO) 0.5 /CMM (0.1-1.30); NEUTROPHILS # (AUTO) 4.8 /CMM (1.8-8.9); NEUTROPHILS % (AUTO) 74.1 % (43.0-81.0); PLATELET COUNT (AUTO) 260 /CMM (150-450); RDW COEFFICIENT OF VARIATION 14.4 (11.5-15.0); RED BLOOD CELL COUNT(AUTO) 4.27 MIL/uL (4.0-5.2); WHITE BLOOD COUNT (AUTO) 6.4 K/uL (4.3-11.0)
[2017-09-16 08:00] VITALS: BP 150/69
[2017-09-16 08:13] LABS: CALCIUM, SERUM 8.5 mg/dL (8.5-10.1); CARBON DIOXIDE 18 mmol/L (21-32); CHLORIDE 105 mmol/L (98-107); GLUCOSE 278 mg/dL (74-106); MAGNESIUM 1.6 mg/dL (1.8-2.4); POTASSIUM 3.8 mmol/L (3.5-5.1); SODIUM SERUM 140 mmol/L (136-145); UREA NITROGEN, BLOOD 16 mg/dL (7-18)
[2017-09-16] MEDS: ASCORBIC ACID 500 MG TABLET PO SCH (08:19)
[2017-09-16] MEDS: HYDROGEL DRESSING 90 GM TUBE TP SCH (08:19)
[2017-09-16] MEDS: MULTIVITAMINS,THERAGRAN 1 UDTAB TABLET PO SCH (08:19)
[2017-09-16] MEDS: MUPIROCIN OINT 2% 22 GM TUBE SCH (08:19)
[2017-09-16] MEDS: BOOST GLUCOSE CONTROL VANILLA 237 ML BOX PO SCH ×2 (08:19→17:05)
[2017-09-16] MEDS: Magnesium 1GM/D5W 100ML PREMIX 100 ML IV SCH ×2 (10:41→11:58)
[2017-09-16] MEDS: HYDROCODONE/APAP 5/325MG 1 EACH TABLET PO PRN (12:01)
[2017-09-16] MEDS: INSULIN REGULAR, HUMAN 100 UNIT/ML 3 ML VIAL SQ PRN (12:04)
[2017-09-16 16:00] VITALS: BP 143/73
[2017-09-16 20:00] VITALS: BP_SYST 149; BP_DIAS 76; BP_DIAS 79
[2017-09-16] MEDS: *INSULIN REGULAR(HUMULIN R)HUM 100 UNIT/ML VIAL SQ PRN (22:00)
[2017-09-17] MEDS ORDERED: MUPIROCIN OINT 2% 22 GM TUBE ONE (01:05)
[2017-09-17] MEDS: MUPIROCIN OINT 2% 22 GM TUBE SCH ×3 (01:10→20:49)
[2017-09-17] MEDS: MEROPENEM 500 MG in IV NS 0.9% 50 ML IV SCH ×2 (02:06→15:28)
[2017-09-17 04:00] VITALS: BP 165/73
[2017-09-17 07:07] LABS: BASOPHILS % (AUTO) 0.3 % (0.0-2.0); EOSINOPHILS # (AUTO) 0.2 /CMM (0.0-0.7); EOSINOPHILS % (AUTO) 1.9 % (0.0-6.0); HEMATOCRIT 34 % (33-45); HEMOGLOBIN 11.5 g/dL (11.5-14.8); LYMPHOCYTES # (AUTO) 1.8 /CMM (0.8-4.8); MEAN CORPUSCULAR HEMOGLOBIN 29 PG (26.0-33.0); MEAN CORPUSCULAR HGB CONC 34 g/dl (31.0-36.0); MEAN CORPUSCULAR VOLUME 86 fL (82-100); MONOCYTES # (AUTO) 0.8 /CMM (0.1-1.30); MONOCYTES % (AUTO) 9.1 % (2.0-12.0); NEUTROPHILS # (AUTO) 5.6 /CMM (1.8-8.9); NEUTROPHILS % (AUTO) 66.7 % (43.0-81.0); PLATELET COUNT (AUTO) 293 /CMM (150-450); RDW COEFFICIENT OF VARIATION 14.1 (11.5-15.0); RED BLOOD CELL COUNT(AUTO) 3.95 MIL/uL (4.0-5.2); WHITE BLOOD COUNT (AUTO) 8.4 K/uL (4.3-11.0)
[2017-09-17 07:16] LABS: CALCIUM, SERUM 8.2 mg/dL (8.5-10.1); CARBON DIOXIDE 25 mmol/L (21-32); CHLORIDE 106 mmol/L (98-107); CREATININE 0.9 mg/dL (0.6-1.3); GLUCOSE 190 mg/dL (74-106); POTASSIUM 3.6 mmol/L (3.5-5.1); SODIUM SERUM 141 mmol/L (136-145); UREA NITROGEN, BLOOD 19 mg/dL (7-18)
[2017-09-17] MEDS: BLOOD SUGAR DIAGNOSTIC 1 EACH STRIP VI SCH ×4 (07:42→21:50)
[2017-09-17] MEDS: BOOST GLUCOSE CONTROL VANILLA 237 ML BOX PO SCH ×2 (07:42→16:58)
[2017-09-17] MEDS: INSULIN ASPART/LISPRO 100 UNIT/ML CARTRIDGE SQ SCH ×4 (07:45→21:56)
[2017-09-17 07:49] VITALS: BP 147/73
[2017-09-17] MEDS: MULTIVITAMINS,THERAGRAN 1 UDTAB TABLET PO SCH (09:05)
[2017-09-17] MEDS: ASCORBIC ACID 500 MG TABLET PO SCH (09:05)
[2017-09-17] MEDS: HYDROGEL DRESSING 90 GM TUBE TP SCH (09:06)
[2017-09-17 12:00] VITALS: BP 152/84
[2017-09-17] MEDS: INSULIN REGULAR, HUMAN 100 UNIT/ML 3 ML VIAL SQ PRN (12:00)
[2017-09-17] MEDS: IV NS 0.9% 1,000 ML IV PRN ×2 (13:04→21:49)
[2017-09-17 20:00] VITALS: BP 153/58
[2017-09-17] MEDS: DIVALPROEX SODIUM 125 MG CAP.SPRINK PO SCH (21:48)
[2017-09-17] MEDS: *INSULIN REGULAR(HUMULIN R)HUM 100 UNIT/ML VIAL SQ PRN (21:56)
[2017-09-18] MEDS: MEROPENEM 500 MG in IV NS 0.9% 50 ML IV SCH ×2 (02:42→14:43)
[2017-09-18 04:00] VITALS: BP 157/81
[2017-09-18] MEDS: BLOOD SUGAR DIAGNOSTIC 1 EACH STRIP VI SCH ×4 (07:19→21:41)
[2017-09-18] MEDS: INSULIN ASPART/LISPRO 100 UNIT/ML CARTRIDGE SQ SCH ×4 (07:23→21:44)
[2017-09-18 08:00] VITALS: BP 167/85
[2017-09-18] MEDS: MUPIROCIN OINT 2% 22 GM TUBE SCH ×2 (08:26→21:42)
[2017-09-18] MEDS: MULTIVITAMINS,THERAGRAN 1 UDTAB TABLET PO SCH (08:26)
[2017-09-18] MEDS: BOOST GLUCOSE CONTROL VANILLA 237 ML BOX PO SCH ×2 (08:26→17:00)
[2017-09-18] MEDS: ASCORBIC ACID 500 MG TABLET PO SCH (08:26)
[2017-09-18] MEDS: DIVALPROEX SODIUM 125 MG CAP.SPRINK PO SCH ×2 (08:26→17:57)
[2017-09-18] MEDS: HYDROGEL DRESSING 90 GM TUBE TP SCH (08:27)
[2017-09-18 10:18] LABS: BASOPHILS % (AUTO) 0.3 % (0.0-2.0); EOSINOPHILS # (AUTO) 0.1 /CMM (0.0-0.7); EOSINOPHILS % (AUTO) 1.4 % (0.0-6.0); HEMATOCRIT 33 % (33-45); HEMOGLOBIN 11.3 g/dL (11.5-14.8); LYMPHOCYTES # (AUTO) 1.7 /CMM (0.8-4.8); LYMPHOCYTES % (AUTO) 16.9 % (20.0-44.0); MEAN CORPUSCULAR HEMOGLOBIN 29 PG (26.0-33.0); MEAN CORPUSCULAR HGB CONC 34 g/dl (31.0-36.0); MEAN CORPUSCULAR VOLUME 86 fL (82-100); MONOCYTES # (AUTO) 0.9 /CMM (0.1-1.30); MONOCYTES % (AUTO) 9.2 % (2.0-12.0); NEUTROPHILS # (AUTO) 7.3 /CMM (1.8-8.9); NEUTROPHILS % (AUTO) 72.2 % (43.0-81.0); PLATELET COUNT (AUTO) 319 /CMM (150-450); RDW COEFFICIENT OF VARIATION 14.5 (11.5-15.0); RED BLOOD CELL COUNT(AUTO) 3.86 MIL/uL (4.0-5.2); WHITE BLOOD COUNT (AUTO) 10.1 K/uL (4.3-11.0)
[2017-09-18 10:25] LABS: CALCIUM, SERUM 8.2 mg/dL (8.5-10.1); CARBON DIOXIDE 25 mmol/L (21-32); CHLORIDE 107 mmol/L (98-107); CREATININE 0.9 mg/dL (0.6-1.3); GLUCOSE 173 mg/dL (74-106); POTASSIUM 3.3 mmol/L (3.5-5.1); SODIUM SERUM 143 mmol/L (136-145); UREA NITROGEN, BLOOD 19 mg/dL (7-18)
[2017-09-18] MEDS ORDERED: CLONIDINE HCL 0.1 MG TABLET PO ONE (11:00)
[2017-09-18] MEDS: INSULIN REGULAR, HUMAN 100 UNIT/ML 3 ML VIAL SQ PRN ×2 (12:29→17:59)
[2017-09-18 12:31] VITALS: BP 147/83
[2017-09-18] MEDS: ASPIRIN 81 MG TAB.CHEW PO SCH (12:40)
[2017-09-18] MEDS: AMLODIPINE BESYLATE 10 MG TABLET PO SCH (12:40)
[2017-09-18] MEDS: METOPROLOL SUCCINATE 50 MG TAB.SR.24H PO SCH (12:41)
[2017-09-18] MEDS ORDERED: POTASSIUM CHLORIDE 20 MEQ TAB.PRT.SR PO ONE (13:00)
[2017-09-18] MEDS ORDERED: CLONIDINE HCL 0.1 MG TABLET PO PRN (13:00)
[2017-09-18] MEDS: ATORVASTATIN 10 MG TABLET PO SCH (14:40)
[2017-09-18] MEDS: LOSARTAN POTASSIUM 50 MG TABLET PO SCH (14:41)
[2017-09-18 16:00] VITALS: BP 153/64
[2017-09-18] MEDS: IV NS 0.9% 1,000 ML IV PRN (17:57)
[2017-09-18 20:00] VITALS: BP 145/72
[2017-09-19] MEDS: MEROPENEM 500 MG in IV NS 0.9% 50 ML IV SCH ×2 (03:05→14:13)
[2017-09-19 04:20] VITALS: BP 160/95
[2017-09-19] MEDS: IV NS 0.9% 1,000 ML IV PRN ×2 (06:38→23:31)
[2017-09-19] MEDS: INSULIN REGULAR, HUMAN 100 UNIT/ML 3 ML VIAL SQ PRN ×3 (06:40→21:07)
[2017-09-19] MEDS: BLOOD SUGAR DIAGNOSTIC 1 EACH STRIP VI SCH ×4 (06:42→21:03)
[2017-09-19 07:17] LABS: BASOPHILS % (AUTO) 0.6 % (0.0-2.0); EOSINOPHILS # (AUTO) 0.2 /CMM (0.0-0.7); EOSINOPHILS % (AUTO) 2.7 % (0.0-6.0); HEMATOCRIT 32 % (33-45); HEMOGLOBIN 10.8 g/dL (11.5-14.8); LYMPHOCYTES # (AUTO) 1.9 /CMM (0.8-4.8); LYMPHOCYTES % (AUTO) 23.4 % (20.0-44.0); MEAN CORPUSCULAR HEMOGLOBIN 29 PG (26.0-33.0); MEAN CORPUSCULAR HGB CONC 34 g/dl (31.0-36.0); MEAN CORPUSCULAR VOLUME 86 fL (82-100); MONOCYTES # (AUTO) 0.7 /CMM (0.1-1.30); MONOCYTES % (AUTO) 8.6 % (2.0-12.0); NEUTROPHILS # (AUTO) 5.3 /CMM (1.8-8.9); NEUTROPHILS % (AUTO) 64.7 % (43.0-81.0); PLATELET COUNT (AUTO) 269 /CMM (150-450); WHITE BLOOD COUNT (AUTO) 8.1 K/uL (4.3-11.0)
[2017-09-19 07:24] LABS: CALCIUM, SERUM 8.2 mg/dL (8.5-10.1); CARBON DIOXIDE 24 mmol/L (21-32); CHLORIDE 107 mmol/L (98-107); CREATININE 0.8 mg/dL (0.6-1.3); GLUCOSE 218 mg/dL (74-106); MAGNESIUM 1.6 mg/dL (1.8-2.4); POTASSIUM 3.7 mmol/L (3.5-5.1); SODIUM SERUM 141 mmol/L (136-145); UREA NITROGEN, BLOOD 18 mg/dL (7-18)
[2017-09-19] MEDS: BOOST GLUCOSE CONTROL VANILLA 237 ML BOX PO SCH ×2 (07:52→17:05)
[2017-09-19] MEDS: HYDROGEL DRESSING 90 GM TUBE TP SCH (07:54)
[2017-09-19 08:00] VITALS: BP 158/94
[2017-09-19] MEDS: INSULIN ASPART/LISPRO 100 UNIT/ML CARTRIDGE SQ SCH ×4 (08:01→21:07)
[2017-09-19] MEDS: ATORVASTATIN 10 MG TABLET PO SCH (08:01)
[2017-09-19] MEDS: LOSARTAN POTASSIUM 50 MG TABLET PO SCH (08:02)
[2017-09-19] MEDS: QUETIAPINE FUMARATE 25 MG TABLET PO PRN (08:02)
[2017-09-19] MEDS: MULTIVITAMINS,THERAGRAN 1 UDTAB TABLET PO SCH (08:02)
[2017-09-19] MEDS: DIVALPROEX SODIUM 125 MG CAP.SPRINK PO SCH ×3 (08:02→17:05)
[2017-09-19] MEDS: METOPROLOL SUCCINATE 50 MG TAB.SR.24H PO SCH (08:02)
[2017-09-19] MEDS: ASCORBIC ACID 500 MG TABLET PO SCH (08:02)
[2017-09-19] MEDS: ASPIRIN 81 MG TAB.CHEW PO SCH (08:02)
[2017-09-19] MEDS: AMLODIPINE BESYLATE 10 MG TABLET PO SCH (08:02)
[2017-09-19] MEDS: Z GUARD REMEDY 2 OZ OINT TP PRN ×3 (08:03→17:50)
[2017-09-19] MEDS: MUPIROCIN OINT 2% 22 GM TUBE SCH ×2 (08:09→23:33)
[2017-09-19] MEDS: Magnesium 1GM/D5W 100ML PREMIX 100 ML IV SCH ×2 (11:06→12:11)
[2017-09-19 12:00] VITALS: BP 148/70
[2017-09-19 16:00] VITALS: BP 129/77
[2017-09-19] MEDS: QUETIAPINE FUMARATE 25 MG TABLET PO SCH (17:14)
[2017-09-19 20:00] VITALS: BP 158/72
[2017-09-19 23:00] VITALS: BP 120/60
[2017-09-19] MEDS: CLOTRIMAZOLE 1% 15 GM TUBE TP SCH (23:32)
[2017-09-20] MEDS: MEROPENEM 500 MG in IV NS 0.9% 50 ML IV SCH ×2 (03:05→15:00)
[2017-09-20] MEDS: QUETIAPINE FUMARATE 25 MG TABLET PO PRN ×2 (05:43→06:43)
[2017-09-20] MEDS: BLOOD SUGAR DIAGNOSTIC 1 EACH STRIP VI SCH ×2 (06:36→12:16)
[2017-09-20] MEDS: INSULIN ASPART/LISPRO 100 UNIT/ML CARTRIDGE SQ SCH ×2 (06:38→13:03)
[2017-09-20] MEDS: INSULIN REGULAR, HUMAN 100 UNIT/ML 3 ML VIAL SQ PRN ×2 (06:39→12:18)
[2017-09-20 07:01] LABS: BASOPHILS % (AUTO) 0.5 % (0.0-2.0); EOSINOPHILS # (AUTO) 0.3 /CMM (0.0-0.7); EOSINOPHILS % (AUTO) 3.9 % (0.0-6.0); HEMATOCRIT 34 % (33-45); HEMOGLOBIN 11.4 g/dL (11.5-14.8); LYMPHOCYTES # (AUTO) 1.8 /CMM (0.8-4.8); LYMPHOCYTES % (AUTO) 22.4 % (20.0-44.0); MEAN CORPUSCULAR HEMOGLOBIN 29 PG (26.0-33.0); MEAN CORPUSCULAR HGB CONC 34 g/dl (31.0-36.0); MEAN CORPUSCULAR VOLUME 86 fL (82-100); MONOCYTES # (AUTO) 0.7 /CMM (0.1-1.30); MONOCYTES % (AUTO) 8.3 % (2.0-12.0); NEUTROPHILS # (AUTO) 5.1 /CMM (1.8-8.9); NEUTROPHILS % (AUTO) 64.9 % (43.0-81.0); PLATELET COUNT (AUTO) 324 /CMM (150-450); RDW COEFFICIENT OF VARIATION 14.1 (11.5-15.0); RED BLOOD CELL COUNT(AUTO) 3.93 MIL/uL (4.0-5.2); WHITE BLOOD COUNT (AUTO) 7.9 K/uL (4.3-11.0)
[2017-09-20 07:25] LABS: CALCIUM, SERUM 7.9 mg/dL (8.5-10.1); CARBON DIOXIDE 25 mmol/L (21-32); CHLORIDE 103 mmol/L (98-107); CREATININE 0.9 mg/dL (0.6-1.3); GLUCOSE 246 mg/dL (74-106); POTASSIUM 3.8 mmol/L (3.5-5.1); SODIUM SERUM 138 mmol/L (136-145); UREA NITROGEN, BLOOD 23 mg/dL (7-18)
[2017-09-20] MEDS: ASCORBIC ACID 500 MG TABLET PO SCH (07:56)
[2017-09-20] MEDS: ATORVASTATIN 10 MG TABLET PO SCH (07:57)
[2017-09-20] MEDS: QUETIAPINE FUMARATE 25 MG TABLET PO SCH (07:57)
[2017-09-20] MEDS: MULTIVITAMINS,THERAGRAN 1 UDTAB TABLET PO SCH (07:57)
[2017-09-20] MEDS: DIVALPROEX SODIUM 125 MG CAP.SPRINK PO SCH ×2 (07:57→12:16)
[2017-09-20] MEDS: ASPIRIN 81 MG TAB.CHEW PO SCH (07:57)
[2017-09-20] MEDS: AMLODIPINE BESYLATE 10 MG TABLET PO SCH (07:58)
[2017-09-20] MEDS: LOSARTAN POTASSIUM 50 MG TABLET PO SCH (07:59)
[2017-09-20] MEDS: METOPROLOL SUCCINATE 50 MG TAB.SR.24H PO SCH (07:59)
[2017-09-20 08:00] VITALS: BP 133/64
[2017-09-20] MEDS: BOOST GLUCOSE CONTROL VANILLA 237 ML BOX PO SCH (08:00)
[2017-09-20] MEDS: CLOTRIMAZOLE 1% 15 GM TUBE TP SCH (08:07)
[2017-09-20] MEDS: HYDROGEL DRESSING 90 GM TUBE TP SCH (08:09)
[2017-09-20] MEDS: MUPIROCIN OINT 2% 22 GM TUBE SCH (08:09)
[2017-09-20] MEDS ORDERED: NUT.237L71 PO (13:31)
[2017-09-20] MEDS ORDERED: DIVA125C PO (13:31)
[2017-09-20] MEDS ORDERED: MUPI22OI7 (13:31)
[2017-09-20] MEDS ORDERED: NITR100C6 PO (13:31)
[2017-09-20] MEDS ORDERED: QUET25TA PO (13:31)
[2017-09-20] MEDS ORDERED: CLOT15CR35 TP (13:31)
[2017-09-20] MEDS ORDERED: MULT-24 PO (13:31)
== END 2017-09-20 17:20 | disposition home or self-care (01) | DRG 871 ==
LOC: ER 13:21 → TELE1 16:10 → TELE-TD 16:14 → MEDSG1 16:20 → MEDSG2 09-19 23:28
PROVIDERS: ADMIT Internal Medicine; ATTEND Internal Medicine
DX: A41.9 Sepsis, unspecified organism (principal); N17.0 Acute kidney failure with tubular necrosis; G92 Toxic encephalopathy; L89.312 Pressure ulcer of right buttock, stage 2; L89.322 Pressure ulcer of left buttock, stage 2; N39.0 Urinary tract infection, site not specified; F05 Delirium due to known physiological condition; E11.65 Type 2 diabetes mellitus with hyperglycemia; B96.20 Unspecified Escherichia coli [E. coli] as the cause of diseases classified elsewhere; G30.9 Alzheimer's disease, unspecified; E78.5 Hyperlipidemia, unspecified; K21.9 Gastro-esophageal reflux disease without esophagitis; Z16.12 Extended spectrum beta lactamase (ESBL) resistance; E87.6 Hypokalemia; Z87.440 Personal history of urinary (tract) infections; R53.1 Weakness; L98.8 Other specified disorders of the skin and subcutaneous tissue; Z22.322 Carrier or suspected carrier of Methicillin resistant Staphylococcus aureus; F29 Unspecified psychosis not due to a substance or known physiological condition; Z79.84 Long term (current) use of oral hypoglycemic drugs; R65.20 Severe sepsis without septic shock; F02.80 Dementia in other diseases classified elsewhere, unspecified severity, without behavioral disturbance, psychotic disturbance, mood disturbance, and anxiety
CPT/HCPCS: 36415; 71045-TC; 80048-TC; 80076-TC; 81000-TC; 82962-TC; 83605-TC; 83735-TC; 84100-TC; 84484-TC; 85025-TC; 85730-TC; 87040-TC; 87081-TC; 87086-TC; 87186-TC; 97110-TC; 97116-TC; 97530-TC; A4216; A4606; A6248; A6402; A6403; J0696; J1630; J1815; J2185; J3475; J3490; J7030; J7060; Z7610

== ENCOUNTER 2017-09-29 11:06 | Inpatient (IN) | payer MEDICARE, MEDICAID ==
[~2017-09-29] VITALS: Ht 154.9 cm; Wt 56.2 kg
[~2017-09-29 11:06] MED LIST changes: -AMLO10TA2 PO; +AMLO10TA6 PO; +CLOT15CR35 TP; +DIVA125C2 PO; +MULT-24 PO; +MUPI22OI7; +NITR100C6 PO; +NUT.237L71 PO; +QUET25TA PO
--- NOTE | 2017-09-29 11:25 | NUR ---
BB SON C/O WEAKNESS AND BLOOD IN URINE NOTICED TODAY. PATIENT IS A/OX 2, BREATHING EVEN AND UNLABORED. NO SOB, NAD, VITALS STABLE. SAFETY AND COMFORT MEASURES IN PLACE. AWAITING MD ORDERS.
[2017-09-29] MEDS ORDERED: IV NS 0.9% 500 ML BAG IV ONE (11:30)
--- NOTE | 2017-09-29 11:35 | NUR ---
NEW IV STARTED ON RAC, 20G. BLOOD DRAWN AND SENT TO LAB.
[2017-09-29 11:39] LABS: BASOPHILS % (AUTO) 0.4 % (0.0-2.0); EOSINOPHILS % (AUTO) 1.2 % (0.0-6.0); HEMATOCRIT 34 % (33-45); HEMOGLOBIN 11.3 g/dL (11.5-14.8); LYMPHOCYTES # (AUTO) 1.7 /CMM (0.8-4.8); LYMPHOCYTES % (AUTO) 24.6 % (20.0-44.0); MEAN CORPUSCULAR HGB CONC 34 g/dl (31.0-36.0); MEAN CORPUSCULAR VOLUME 85 fL (82-100); MONOCYTES # (AUTO) 0.9 /CMM (0.1-1.30); MONOCYTES % (AUTO) 12.9 % (2.0-12.0); NEUTROPHILS # (AUTO) 4.3 /CMM (1.8-8.9); NEUTROPHILS % (AUTO) 60.9 % (43.0-81.0); PLATELET COUNT (AUTO) 359 /CMM (150-450); RDW COEFFICIENT OF VARIATION 12.9 (11.5-15.0); RED BLOOD CELL COUNT(AUTO) 3.96 MIL/uL (4.0-5.2)
--- NOTE | 2017-09-29 11:39 | NUR ---
CUSTOMER SERVICE DISPATCHER AT BEDSIDE.
--- NOTE | 2017-09-29 11:43 | NUR ---
EMT AT BEDSIDE FOR EKG
[2017-09-29 11:49] LABS: CALCIUM, SERUM 8.3 mg/dL (8.5-10.1); CARBON DIOXIDE 26 mmol/L (21-32); CHLORIDE 102 mmol/L (98-107); CREATININE 1.1 mg/dL (0.6-1.3); GLUCOSE 329 mg/dL (74-106); POTASSIUM 3.8 mmol/L (3.5-5.1); SODIUM SERUM 137 mmol/L (136-145); UREA NITROGEN, BLOOD 26 mg/dL (7-18)
--- NOTE | 2017-09-29 11:50 | NUR ---
SON: YOVANY: [phone]
[2017-09-29 11:57] LABS: TROPONIN I < 0.017 ng/mL (0.00-0.056)
[2017-09-29 11:58] LABS: ALANINE AMINOTRANSFERASE 17 U/L (12-78); ALBUMIN 2.7 g/dL (3.4-5.0); ALKALINE PHOSPHATASE 70 U/L (46-116); ASPARTATE AMINOTRANSFERASE 12 U/L (15-37); BILIRUBIN,DIRECT 0.2 mg/dL (0.0-0.2); BILIRUBIN,TOTAL 0.5 mg/dL (0.2-1.0); TOTAL PROTEIN, SERUM 7.6 g/dL (6.4-8.2)
--- NOTE | 2017-09-29 12:04 | NUR ---
URINE OBTAINED AND SENT TO LAB.
[2017-09-29 12:10] LABS: APPEARANCE,URINE Cloudy (CLEAR); BILIRUBIN,URINE Negative (NEGATIVE); BLOOD, URINE Moderate Ery/uL (NEGATIVE); COLOR,URINE Yellow (YELLOW); KETONES,URINE Negative (NEGATIVE); LEUKOCYTE ESTERASE ,URINE Large (NEGATIVE); NITRITE, URINE Negative (NEGATIVE); PH,URINE 5.5 (5.0-8.0); PROTEIN,URINE 100 mg/dl (NEGATIVE); UGLUCOSE 250 MG/DL mg/dL (NEGATIVE); UROBILINOGEN,URINE 0.2 EU/dL (0.2)
[2017-09-29 12:28] LABS: BACTERIA,URINE Many /HPF (None Seen); SQUAMOUS EPITHELIAL CELL,UR Few /HPF (None Seen)
[2017-09-29 12:29] LABS: WBC,URINE TOO NUMEROUS TO COUN /HPF (0-3)
[2017-09-29] MEDS ORDERED: MEROPENEM 1 G in IV NS 0.9% 100 ML IV ONE (12:30)
--- NOTE | 2017-09-29 12:46 | NUR ---
CALLED [facility] FOR A PANEL CALL AND DALE TALLEY WAS PAGED
[2017-09-29] MEDS ORDERED: OLANZAPINE 10 MG VIAL IM ONE ×2 (13:10→13:30)
--- NOTE | 2017-09-29 13:20 | NUR ---
PATIENT RESTLESS, CONSTANTLY CLIMBING OUT OF BED, RISK FOR FALLS. ORIENTED PATIENT NUMEROUS TIMES, WITH NO IMPROVEMENT. MD INFORMED, ORDERD ZYPREXA IM 5MG. GIVEN PER MD ORDERS.
--- NOTE | 2017-09-29 13:48 | NUR ---
PT IS ASSIGNED TO MED/SURG RM #[id number], DIAGNOSED WITH SEPSIS AND WEAKNESS, AND SAMARIA TALLEY IS THE ADMITTING FLIGHT HOSTESS
[2017-09-29] MEDS ORDERED: MAG HYDROX/AL HYDROX/SIMETH 30 ML UDC PO PRN (14:00)
[2017-09-29] MEDS ORDERED: DEXTROSE 50%-WATER 50 ML DISP.SYRIN IV PRN (14:00)
[2017-09-29] MEDS ORDERED: MAGNESIUM HYDROXIDE 30 ML UDC PO PRN (14:00)
[2017-09-29] MEDS ORDERED: HYDROCODONE/APAP 5/325MG 1 EACH TABLET PO PRN (14:00)
[2017-09-29] MEDS ORDERED: ACETAMINOPHEN 325 MG TABLET PO PRN (14:00)
[2017-09-29] MEDS ORDERED: ONDANSETRON HCL/PF 4 MG/2 ML VIAL IVP PRN (14:00)
[2017-09-29] MEDS ORDERED: Z GUARD REMEDY 2 OZ OINT TP PRN (14:00)
--- NOTE | 2017-09-29 14:25 | NUR ---
REPORT GIVEN TO KEVEN WAGGONER FOR SHIELA UPON ADMISSION.
--- NOTE | 2017-09-29 14:35 | NUR ---
PATIENT TRANSPORTED TO [facility] VIA ACLS PROTOCOL. RNKEVEN TO PROVIDE SHIELA
[2017-09-29] MEDS: IV NS 0.9% 1,000 ML IV PRN (15:56)
[2017-09-29 16:00] VITALS: BP 144/70
--- NOTE | 2017-09-29 16:53 | NUR ---
MS RN NOTE: PATIENT 82 Y/O FEMALE ADMITTED TO MS DIAGNOSIS UTI, FROM HOME LIVING WITH HER SON . PT VSS , PT CONFUSED A/O X1 RESTLESS AT TIMES, NO S/S DISTRESS NOTED. SKIN ASSESSMENT DONE NOTED SACRAL OPENING , PERINEUM READNESS /FUNGUS , LEFT UPPER ARM DISCOLORATION . WOUND CONSULT ORDER, PT COMBATIVE WHEN TOUCHED UNABLE TO TAKE FULL PICTURES WILL INDORSE TO INCOMING SHIFT RN FOR CONTINUATION AND CARE. Addendum: 09/29/17 at 1846 by BRANDEN COMBS RN PT NOTED LEFT FOOT DISCOLORATION ,SCAB, RIGHT FOREHEAD, SCAB WITH DISCOLORATION WILL INDORSE TO INCOMING SHIFT RN
[2017-09-29] MEDS: METFORMIN 500 MG TABLET PO SCH (17:32)
[2017-09-29] MEDS: DIVALPROEX SODIUM 125 MG CAP.SPRINK PO SCH (17:32)
[2017-09-29] MEDS: QUETIAPINE FUMARATE 25 MG TABLET PO SCH (17:32)
[2017-09-29] MEDS: INSULIN GLARGINE, 100 UNIT/ML CARTRIDGE SQ SCH (17:35)
[2017-09-29] MEDS: CLOTRIMAZOLE 1% 15 GM TUBE TP SCH (17:36)
[2017-09-29] MEDS: BLOOD SUGAR DIAGNOSTIC 1 EACH STRIP IN SCH ×2 (17:36→22:00)
[2017-09-29] MEDS: INSULIN REGULAR, HUMAN 100 UNIT/ML 3 ML VIAL SQ PRN ×2 (17:38→23:04)
[2017-09-29] MEDS: BOOST GLUCOSE CONTROL VANILLA 237 ML BOX PO SCH (18:57)
[2017-09-29 20:00] VITALS: BP 128/95
[2017-09-29] MEDS ORDERED: MEROPENEM 500 MG in IV NS 0.9% 50 ML IV SCH (21:00)
[2017-09-29] MEDS: MEROPENEM 1 G in IV NS 0.9% 100 ML IV SCH (21:00)
--- NOTE | 2017-09-29 21:09 | NUR ---
RECIEVED ALERT ONLY TO NAME EYE CONTACT PRESENT SPEECH CLEAR WILL FOLLOW SIMPLE DIRECTION. FRANDY AREA RED NOTED FINGAL CREAM ORDERED
--- NOTE | 2017-09-29 21:10 | NUR ---
RECIEVED ALERT ONLY TO NAME FOLLOWS SIMPLE DIERECTIONS SITTER AT THE BEDSIDE.
[2017-09-29 21:11] VITALS: BP 128/95
[2017-09-29] MEDS ORDERED: LORAZEPAM INJ 2 MG/ML VIAL IV SCH (21:30)
[2017-09-29] MEDS ORDERED: MEROPENEM 1 G VIAL IV ONE (21:52)
[2017-09-29] MEDS ORDERED: ATORVASTATIN 10 MG TABLET PO SCH (22:00)
--- NOTE | 2017-09-30 | NUR ---
MS RN NOTES RECEIVED REPORT FROM CAMILLE WAGGONER,PATIENT ON BED A/O X1-2,CONFUSED,COMBATIVE AT TIMES.IVF NS AT 75ML/HR RATE INFUSING ON RFA VIA IV PUMP.SITTER AT BEDSIDE FOR SAFETY.REPOSITION PER PROTOCOL.WILL CONTINUE TO MONITOR STATUS.
--- NOTE | 2017-09-30 05:30 | NUR ---
MS RN NOTES TRANSFERRED TO ROOM 311-2,FOR HX OF MRSA NARES AND ESBL URINE.
[2017-09-30] MEDS: IV NS 0.9% 1,000 ML IV PRN (05:44)
--- NOTE | 2017-09-30 06:18 | NUR ---
MS RN NOTES NO SIGNIFICANT CHANGE IN STATUS.COMBATIVE WITH CARE.IN NO ACUTE DISTRESS.WILL ENDORSE TO DAY NURSE FOR SHIELA.
[2017-09-30] MEDS: BLOOD SUGAR DIAGNOSTIC 1 EACH STRIP IN SCH ×3 (06:32→18:59)
--- NOTE | 2017-09-30 06:37 | NUR ---
MS RN NOTES ACCU-CHECK BLOOD SUGAR CHECK 70,NO INSULIN COVERAGE. ORANGE JUICE WITH SUGAR GIVEN
[2017-09-30 07:10] LABS: BASOPHILS % (AUTO) 0.3 % (0.0-2.0); EOSINOPHILS % (AUTO) 1.5 % (0.0-6.0); HEMATOCRIT 31 % (33-45); HEMOGLOBIN 10.4 g/dL (11.5-14.8); LYMPHOCYTES # (AUTO) 1.5 /CMM (0.8-4.8); MEAN CORPUSCULAR HGB CONC 34 g/dl (31.0-36.0); MEAN CORPUSCULAR VOLUME 87 fL (82-100); MONOCYTES # (AUTO) 0.8 /CMM (0.1-1.30); MONOCYTES % (AUTO) 10.9 % (2.0-12.0); NEUTROPHILS # (AUTO) 4.9 /CMM (1.8-8.9); NEUTROPHILS % (AUTO) 67.3 % (43.0-81.0); PLATELET COUNT (AUTO) 322 /CMM (150-450); RDW COEFFICIENT OF VARIATION 14.1 (11.5-15.0); RED BLOOD CELL COUNT(AUTO) 3.53 MIL/uL (4.0-5.2); WHITE BLOOD COUNT (AUTO) 7.4 K/uL (4.3-11.0)
--- NOTE | 2017-09-30 07:12 | NUR ---
MS RN OPENING NOTE RECEIVED BEDSIDE SBAR REPORT ON THE PATIENT PATIENT IS ON CONTACT ISOLATION. PATIENT IS ORIENTED TO SELF ONLY, CONFUSED. AUTO DAMAGE INSURANCE APPRAISER NURSE REPORTED LAST BLOOD GLUCOSE READING 70MG/DL. RN ATTEMPTED TO GIVE SOME ORANGE JUICE TO PATIENT. PATIENT TOOK A SIP AND ATTEMPTED TO PUSH THE CUP AWAY BY PUSHING THE RN'S ARM. PATIENT IS CALMLY SLEEPING IN BED, BUT BECOMES AGITATED WHEN MOVED/TOUCHED. REFUSED TO DRINK MORE ORANGE JUICE. ATTEMPTED TO OFFER BOOST. PATIENT REFUSED. WILL ATTEMPT AGAIN. RN ATTEMPTED TO PUT DVT PUMPS ON THE PATIENT. PATIENT STARTED KICKING THE LEGS AND SCHEMING "NO!" CURRENTLY SLEEPING, EASILY AWAKEN IN BED. BED IS LOCKED IN LOWEST POSITION, SIDE RAILS UP X3, BED ALARM IS ON. CALL LIGHT WITHIN REACH. EDUCATED TO CALL FOR ASSISTANCE USING THE CALL LIGHT. PATIENT PRESENTS WITH POOR CONCENTRATION AND IS UNABLE TO VERBALIZED UNDERSTANDING. PATIENT'S ROOM IS CLOSE TO THE NURSES STATION FOR CONSTANT VISUAL AVAILABILITY OF THE PATIENT/SURROUNDINGS. ALL NEEDS ARE MET. WILL CONTINUE TO ASSESS/MONITOR THROUGHOUT THE SHIFT.
[2017-09-30 07:31] LABS: CHOLESTEROL 106 mg/dL (<200); HDL CHOLESTEROL 41 mg/dL (40-60); LDL 58 mg/dL (0-99); THYROID STIMULATING HORMONE 2.005 uIU/mL (0.358-3.74); TRIGLYCERIDES 70 mg/dL (30-150)
[2017-09-30 07:34] LABS: CALCIUM, SERUM 7.9 mg/dL (8.5-10.1); CARBON DIOXIDE 26 mmol/L (21-32); CHLORIDE 111 mmol/L (98-107); CREATININE 0.9 mg/dL (0.6-1.3); GLUCOSE 67 mg/dL (74-106); MAGNESIUM 1.5 mg/dL (1.8-2.4); PHOSPHORUS 3.5 mg/dL (2.5-4.9); POTASSIUM 3.5 mmol/L (3.5-5.1); SODIUM SERUM 145 mmol/L (136-145); UREA NITROGEN, BLOOD 18 mg/dL (7-18)
[2017-09-30 08:00] VITALS: BP 140/60
[2017-09-30] MEDS: ATORVASTATIN 10 MG TABLET PO SCH (08:57)
[2017-09-30] MEDS: ASPIRIN 81 MG TAB.CHEW PO SCH (08:57)
[2017-09-30] MEDS: METFORMIN 500 MG TABLET PO SCH ×2 (08:57→17:00)
[2017-09-30] MEDS: DIVALPROEX SODIUM 125 MG CAP.SPRINK PO SCH ×3 (08:58→17:00)
[2017-09-30] MEDS: METOPROLOL SUCCINATE 50 MG TAB.SR.24H PO SCH (08:58)
[2017-09-30] MEDS: QUETIAPINE FUMARATE 25 MG TABLET PO SCH ×2 (08:58→17:00)
[2017-09-30] MEDS: AMLODIPINE BESYLATE 10 MG TABLET PO SCH (08:59)
[2017-09-30] MEDS: LOSARTAN POTASSIUM 50 MG TABLET PO SCH (08:59)
[2017-09-30] MEDS: BOOST GLUCOSE CONTROL VANILLA 237 ML BOX PO SCH ×2 (08:59→17:00)
[2017-09-30] MEDS: INSULIN GLARGINE, 100 UNIT/ML CARTRIDGE SQ SCH ×2 (09:00→17:00)
[2017-09-30] MEDS ORDERED: Medication Not On Formulary EA (Rosuvastatin Calcium (Crestor) 5 MG) PO SCH (09:00)
[2017-09-30] MEDS: CLOTRIMAZOLE 1% 15 GM TUBE TP SCH ×2 (09:33→17:00)
--- NOTE | 2017-09-30 09:39 | NUR ---
PATIENT'S BLOOD GLUCOSE IS 83 MG/DL. BLOOD GLUCOSE NOTED DECREASED THROUGHOUT THE NIGHT. PATIENT PRESENTS WITH POOR APPETITE AND POOR ORAL INTAKE. HOLDING LANTUS AT THIS TIME. JOB SWANSON.
[2017-09-30] MEDS: MULTIVITAMINS,THERAGRAN 1 UDTAB TABLET PO SCH (09:40)
[2017-09-30] MEDS: MEROPENEM 1 G in IV NS 0.9% 100 ML IV SCH ×2 (10:01→20:39)
--- NOTE | 2017-09-30 10:06 | NUR ---
JOB TALLEY AT THE BEDSIDE. RN REPORTED PATIENT IS COMBATIVE, UNCOOPERATIVE, AGITATED. RN RECEIVED VERBAL ORDER OF ATIVAN 0.5 MG IV ONCE NOW. READ BACK AND VERIFIED. WILL FOLLOW ORDER RECEIVED.
--- NOTE | 2017-09-30 10:16 | NUR ---
PATIENT ATTEMPTED TO PULL OUT HER IV. RN TEMPORARILY DISCONNECTED THE IV. PATIENT SEEMS AGITATED. DOES NOT APPEAR TO UNDERSTAND ARABIC. MOST PROBABLY LAO SPEAKER PATIENT ATTEMPTED TO GET OUT OF THE BED. RN SUGGESTED TO PLACE A SITTER IN PATIENT'S ROOM FOR SAFETY. PER CHARGE NURSE SITTERS ARE CURRENTLY UNAVAILABLE
--- NOTE | 2017-09-30 10:18 | NUR ---
ATTEMPTED TO CALL PATIENT'S SON YOVANY TO ASK IF FAMILY MEMBERS COULD COME BE WITH THE PATIENT TO HELP DECREASE AGITATION. THE SOS DID NOT ANSWER THE PHONE. DID NOT LEAVE A MESSAGE. WILL ATTEMPT TO CALL LATER.
--- NOTE | 2017-09-30 10:24 | NUR ---
SPOKE TO THE SON ON THE PHONE. THE SON STATED THAT THE MOTHER IS AGITATED AND AGGRESSIVE AT HOME WELL. SON STATED HE WILL COME TO VISIT THE MOTHER AND SPEND SOME TIME AT THE BEDSIDE TO ASSURE HER SAFETY AND FALL PREVENTION.
[2017-09-30] MEDS ORDERED: LORAZEPAM INJ 2 MG/ML VIAL IV ONE (10:30)
--- NOTE | 2017-09-30 10:38 | NUR ---
PATIENT PULLED OUT HER IV CATHETER. TIP INTACT. OCLUSIVE DRESSING APPLIED. LFA g 22 IV CATHETER INSERTED.
--- NOTE | 2017-09-30 10:50 | NUR ---
PER JOB TALLEY ORDER PSYCH CONSULT FOR PATIENT. ORDER READ BACK AND VERIFIED. FACE SHEET FAXED TO [employer]. SPOKE TO ZENA IN [employer] AND CONFIRMED FAX WAS RECEIVE.D
[2017-09-30] MEDS: Magnesium 1GM/D5W 100ML PREMIX 100 ML IV SCH ×2 (12:40→13:45)
[2017-09-30 16:00] VITALS: BP 126/75
[2017-09-30] MEDS ORDERED: IV NS 0.9% 1,000 ML IV PRN (16:12)
--- NOTE | 2017-09-30 16:47 | NUR ---
PATIENT REMOVED IV CATHETER. TIP INTACT. OCLUSSIVE DRESSING APPLIED. ATTEMPTED TO INSERT ANOTHER IV UNSUCCESSFULLY. PATIENT STARTED SCTEAMING AND ATTEMPTED TO HIT THE NURSE. WILL ATTEMPT TO START ANOTHER IV LATER.
--- NOTE | 2017-09-30 17:56 | NUR ---
CAME TO ADMINISTER MEDICATIONS AND ATTEMPT TO RE-INSERT IV. FAMILY AT THE BEDISDE. PATIENT IS AGITATED AND COMBATIVE. ATTEMPTED TO KICK THE NURSE WITH THE LEG. PUSHED THE SON GUILLERMO AWAY. CALLED JOB TALLEY NP
--- NOTE | 2017-09-30 18:12 | NUR ---
CAME TO ADMINISTER MEDICATIONS AND CHECK THE BLOOD GLUCOSE. PATIENT ATTEMPTED TO SPIT ON THE NURSE. BECAME AGGRESSIVE AND AGITATED.
[2017-09-30] MEDS ORDERED: LORAZEPAM INJ 2 MG/ML VIAL IM ONE (18:30)
[2017-09-30] MEDS ORDERED: LORAZEPAM INJ 2 MG/ML VIAL IM PRN (18:30)
[2017-09-30] MEDS: INSULIN REGULAR, HUMAN 100 UNIT/ML 3 ML VIAL SQ PRN (18:59)
--- NOTE | 2017-09-30 19:30 | NUR ---
MS RN OPENING NOTES RECEIVED PT IN BED ASLEEP, ON ROOM AIR, RESPIRATIONS EVEN, UNLABORED NO APPARENT DISTRESS NOTED. NO S/SX OF PAIN OR DISCOMFORT NOTED. IV SITE LT FA INTACT, PATENT.BED LOCKED IN LOWEST POSITION. ATTENDED ALL NEEDS. KEPT CLEAN AND COMFORTABLE. WILL CONTINUE TO MONITOR ACCORDINGLY.
--- NOTE | 2017-09-30 19:57 | NUR ---
MS RN OPENING NOTE GAVE BEDSIDE SBAR REPORT ON THE PATIENT IS ON CONTACT ISOLATION. PATIENT IS ORIENTED TO SELF ONLY, CONFUSED, AGITATED, COMBATIVE. ATIVAN IM ADMINISTERED ORDERED. SOFT WRIST RESTRAINT APPLIED. CURRENTLY SLEEPING, EASILY AWAKEN IN BED. BED IS LOCKED IN LOWEST POSITION, SIDE RAILS UP X3, BED ALARM IS ON. CALL LIGHT WITHIN REACH. EDUCATED TO CALL FOR ASSISTANCE USING THE CALL LIGHT. PATIENT PRESENTS WITH POOR CONCENTRATION AND IS UNABLE TO VERBALIZED UNDERSTANDING. PATIENT'S ROOM IS CLOSE TO THE NURSES STATION FOR CONSTANT VISUAL AVAILABILITY OF THE PATIENT/SURROUNDINGS. ALL NEEDS ARE MET. ENDORSED TO THE VINYL INSTALLER NURSE TANYA FOR SHIELA. Addendum: 09/30/17 at 1999 by SOBIA PIEDRA RN CLOSING NOTE
[2017-09-30 20:00] VITALS: BP 118/53
[2017-09-30 22:00] VITALS: BP 118/63
[2017-09-30] MEDS ORDERED: LORAZEPAM INJ 2 MG/ML VIAL IV PRN (22:00)
[2017-10-01] MEDS: BLOOD SUGAR DIAGNOSTIC 1 EACH STRIP IN SCH ×5 (00:44→21:01)
[2017-10-01] MEDS: INSULIN REGULAR, HUMAN 100 UNIT/ML 3 ML VIAL SQ PRN ×3 (00:46→21:04)
--- NOTE | 2017-10-01 06:47 | NUR ---
MS RN CLOSING NOTES PT IN BED RESTING COMFORTABLY, ON ROOM AIR, RESPIRATIONS EVEN, UNLABORED, NO APPARENT DISTRESS NOTED. NO S/SX OF PAIN OR DISCOMFORT NOTED. IV SITE INTACT, PATENT. KEPT CLEAN AND COMFORTABLE, ATTENDED ALL NEEDS. WILL ENDORSE TO DAY SHIFT FOR CONTINUITY OF CARE.
--- NOTE | 2017-10-01 07:30 | NUR ---
RN NOTES PATIENT ASLEEP BUT EASILY AROUSABLE, UNABLE TO DISTINGUISH PATIENT'S LANGUAGE, ON BILATERAL SOFT WRIST RESTRAINTS, ON IVF INFUSING AND TOLERATING WELL, NEEDS ATTENDED AND ANTICIPATED, CALL LIGHT WITHIN REACH, WILL CONTINUET O MONITOR.
[2017-10-01 08:00] VITALS: BP 138/67
[2017-10-01] MEDS: QUETIAPINE FUMARATE 25 MG TABLET PO SCH (08:35)
[2017-10-01] MEDS: BOOST GLUCOSE CONTROL VANILLA 237 ML BOX PO SCH ×2 (08:35→17:19)
[2017-10-01] MEDS: ASPIRIN 81 MG TAB.CHEW PO SCH (08:35)
[2017-10-01] MEDS: DIVALPROEX SODIUM 125 MG CAP.SPRINK PO SCH ×3 (08:35→17:20)
[2017-10-01] MEDS: MULTIVITAMINS,THERAGRAN 1 UDTAB TABLET PO SCH (08:35)
[2017-10-01] MEDS: ATORVASTATIN 10 MG TABLET PO SCH (08:35)
[2017-10-01] MEDS: AMLODIPINE BESYLATE 10 MG TABLET PO SCH (08:38)
[2017-10-01] MEDS: LOSARTAN POTASSIUM 50 MG TABLET PO SCH (08:38)
[2017-10-01] MEDS: METOPROLOL SUCCINATE 50 MG TAB.SR.24H PO SCH (08:39)
[2017-10-01] MEDS: INSULIN GLARGINE, 100 UNIT/ML CARTRIDGE SQ SCH ×3 (08:43→17:30)
[2017-10-01] MEDS: METFORMIN 500 MG TABLET PO SCH ×3 (08:44→17:20)
[2017-10-01] MEDS: MEROPENEM 1 G in IV NS 0.9% 100 ML IV SCH ×2 (08:48→20:29)
[2017-10-01] MEDS: CLOTRIMAZOLE 1% 15 GM TUBE TP SCH ×2 (08:51→17:20)
--- NOTE | 2017-10-01 10:37 | NUR ---
WOUND CARE CONSULT: RECEIVED CONSULT FOR SACRAL AREA. PT PRESENTS WITH SACRAL/BUTTOCKS SCARRING. PT IS VERY COMBATIVE AND STRIKES OUT AT NURSING STAFF. ALL SKIN PROTECTION MEASURES IN PLACE. DISCUSSED WITH NURSING STAFF. CURRENT SARA SCORE IS 14. WILL SEE PRN. BAILEY IN AGREEMENT WITH PLAN OF CARE Addendum: 10/01/17 at 1038 by MARY WALLER WNDNU Amended: Links added.
--- NOTE | 2017-10-01 13:14 | NUR ---
RN NOTES PATIENT'S BS 254, PATIENT REFUSING TO EAT, INSULIN HELD AT THIS TIME, PER ELECTROLOG OPERATOR'S REPORT PATIENT IS KICKING AND COMBATIVE. PATIENT IS CURRENTLY ON BILATERAL SOFT WRIST RESTRAINTS. SKIN CHECK COMPLETED, CALL LIGHT WITHIN REACH, TURNED AND REPOSITIONED, WILL CONTINUE TO MONITOR.
[2017-10-01 16:00] VITALS: BP 139/61
--- NOTE | 2017-10-01 18:40 | NUR ---
RN NOTES PATIENT ALERT AND ORIENTED X1, STILL NOTED WITH AGITATION, BILATERAL SOFT WRIST RESTRAINTS IN PLACED, PATIENT ABLE TO REMOVE AT TIMES AND PULLED OUT PIV. PIV RE-INSERTED ON LEFT FA #22 I Addendum: 10/01/17 at 1844 by ELISEO OROZCO RN ADDENDUM: TURNED AND REPOSITIONED WHEN PERMITTED BY PATIENT, SKIN CARE RENDERED, NEEDS ATTENDED AND MET, CALL LIGHT WITHIN REACH, WILL ENDORSE TO CNC MAINTENANCE TECHNICIAN FOR SHIELA.
--- NOTE | 2017-10-01 19:00 | NUR ---
RN NOTES RECEIVE PT IN BED A/O X 1, NO S/S OF DISTRESS, STABLE, SAFETY MEASURES IN PLACE, CALL LIGHT WITHIN REACH, WILL CONTINUE TO MONITOR
[2017-10-01 20:00] VITALS: BP 127/61
[2017-10-02] MEDS: INSULIN REGULAR, HUMAN 100 UNIT/ML 3 ML VIAL SQ PRN ×4 (06:05→22:21)
[2017-10-02] MEDS: BLOOD SUGAR DIAGNOSTIC 1 EACH STRIP IN SCH ×4 (06:05→22:06)
--- NOTE | 2017-10-02 06:18 | NUR ---
MS RN NOTES PT ASLEEP COMFORTABLY IN BED AND EASILY AWAKEN SEMI FOWLERS POSITION TOLERATING ROOM AIR 98%, NOT IN RESPIRATORY DISTRESS. STABLE CONDITION. NO ACUTE CHANGES THROUGHOUT THE SHIFT. KEPT CLEAN AND DRY AND COMFORTABLE. NURSING CARE RENDERED. NEEDS ATTENDED AND ANTICIPATED. REPOSITION EVERY 2 HOURS FOR COMFORT AND MGT. GOOD SKIN CARE PROVIDED. ON LOW BED TO ENSURE SAFETY, CALL LIGHT WITHIN REACH, WILL ENDORSE TO THE NEXT SHIFT CONTINUE PLAN OF CARE
--- NOTE | 2017-10-02 07:30 | NUR ---
MS/RN OPENING NOTE PATIENT ALERT AND ORIENTED X1. REDIRECTION AND REORIENTATION PROVIDED. DENIES PAIN AT THIS TIME. RESPIRATION REGULAR AND UNLABORED. DENIES SOB AT THIS TIME. OXYGEN SATURATION IN ROOM AIR AT 97%. LFA G 22 PATENT AND SALINE LOCKED. BED LOW AND LOCKED. SIDE RAILS UP X3. CALL LIGHT WITHIN REACH. WILL CONTINUE TO MONITOR.
[2017-10-02 08:00] VITALS: BP 125/60
[2017-10-02] MEDS: METOPROLOL SUCCINATE 50 MG TAB.SR.24H PO SCH (09:00)
[2017-10-02] MEDS: LOSARTAN POTASSIUM 50 MG TABLET PO SCH (09:00)
[2017-10-02] MEDS: AMLODIPINE BESYLATE 10 MG TABLET PO SCH (09:00)
[2017-10-02] MEDS: BOOST GLUCOSE CONTROL VANILLA 237 ML BOX PO SCH ×2 (09:21→17:39)
[2017-10-02] MEDS: ATORVASTATIN 10 MG TABLET PO SCH (09:21)
[2017-10-02] MEDS: MULTIVITAMINS,THERAGRAN 1 UDTAB TABLET PO SCH (09:21)
[2017-10-02] MEDS: METFORMIN 500 MG TABLET PO SCH ×2 (09:21→17:38)
[2017-10-02] MEDS: ASPIRIN 81 MG TAB.CHEW PO SCH (09:22)
[2017-10-02] MEDS: DIVALPROEX SODIUM 125 MG CAP.SPRINK PO SCH ×3 (09:22→17:38)
[2017-10-02] MEDS: QUETIAPINE FUMARATE 25 MG TABLET PO SCH ×3 (09:31→17:38)
[2017-10-02] MEDS: CLOTRIMAZOLE 1% 15 GM TUBE TP SCH ×2 (09:32→17:39)
[2017-10-02] MEDS: MEROPENEM 1 G in IV NS 0.9% 100 ML IV SCH ×2 (09:44→22:06)
[2017-10-02] MEDS: INSULIN GLARGINE, 100 UNIT/ML CARTRIDGE SQ SCH ×2 (09:47→18:02)
[2017-10-02] MEDS ORDERED: ERTA1VIA2 IV (10:16)
[2017-10-02 15:00] VITALS: BP 121/62
[2017-10-02 16:00] VITALS: BP 119/55
--- NOTE | 2017-10-02 18:20 | NUR ---
MS/RN CLOSING NOTE PATIENT ALERT AND ORIENTED TO SELF. REDIRECTION AND REORIENTATION PROVIDED FREQUENTLY. DENIES SOB. RESPIRATION REGULAR AND UNLABORED. O2 SATURATION IN ROOM AIR AT 96%. DENIES PAIN. PATIENT IN NO APPARENT DISTRESS. NOTE. LFA G 22 PATENT AND SALINE LOCKED. ALL DUE MEDICATIONS GIVEN ORDERED AND NO ASE NOTED. PATIENT IS INCONTINENT. GOOD AND GENTLE SKIN CARE RENDERED. KEPT CLEAN, DRY AND COMFORTABLE. BED LOW AND LOCKED. BED ALARM ON. SIDE RAILS UP X3. CALL LIGHT WITHIN REACH. WILL ENDORSE TO HEALTH RESEARCHER.
--- NOTE | 2017-10-02 19:30 | NUR ---
MS RN OPENING NOTES RECEIVED PT ALERT, AWAKE, ON ROOM AIR, RESPIRATIONS EVEN, UNLABORED , NO APPARENT DISTRESS NOTED. NO S/SX OF PAIN OR DISCOMFORT NOTED.IV SITE LFA INTACT, PATENT. CALL LIGHT WITHIN REACH. BED LOCKED IN LOWEST POSITION. KEPT CLEAN AND COMFORTABLE, ATTENDED ALL NEEDS. WILL CONTINUE TO MONITOR ACCORDINGLY.
[2017-10-02 20:00] VITALS: BP 136/69
[2017-10-02 22:00] VITALS: BP 120/62
[2017-10-03] MEDS: BLOOD SUGAR DIAGNOSTIC 1 EACH STRIP IN SCH ×3 (06:06→17:50)
--- NOTE | 2017-10-03 06:11 | NUR ---
MS RN CLOSING NOTES PT IN BED RESTING COMFORTABLY. ON ROOM AIR, NO RESPIRATORY DISTRESS NOTED.NO S/SX OF PAIN OR DISCOMFORT NOTED. KEPT CLEAN AND COMFORTABLE. ATTENDED ALL NEEDS. WILL ENDORSE TO THE DAY SHIFT FOR CONTINUITY OF CARE.
--- NOTE | 2017-10-03 07:10 | NUR ---
MSRN OPENING NOTES. PT RECEIVED A&0X1, ASLEEP AND RESPONSIVE TO NAME. SWR INACTIVE AT BEDSIDE. PT TOLERATING ROOM AIR WITHOUT RESP DISTRESS. PT IS WITHOUT S/S OF PAIN. PT IVC AT L FOREARM PULLED OUT. IVC D/C AND NAD AT SITE. PT UNABLE TO COMPREHEND POC. WILL REORIENTATE AND REASSURE NEEDED. BED IN LOWEST LOCKED POSITION WITH HANDRAILSX3 AND CALL VICTORIA WITHIN REACH.
[2017-10-03 07:59] VITALS: BP 134/69
[2017-10-03] MEDS: BOOST GLUCOSE CONTROL VANILLA 237 ML BOX PO SCH ×2 (08:32→17:50)
[2017-10-03] MEDS: DIVALPROEX SODIUM 125 MG CAP.SPRINK PO SCH ×3 (08:33→17:50)
[2017-10-03] MEDS: INSULIN GLARGINE, 100 UNIT/ML CARTRIDGE SQ SCH ×2 (08:56→17:56)
[2017-10-03] MEDS: MEROPENEM 1 G in IV NS 0.9% 100 ML IV SCH ×2 (08:56→11:50)
[2017-10-03] MEDS: LOSARTAN POTASSIUM 50 MG TABLET PO SCH (08:57)
[2017-10-03] MEDS: METFORMIN 500 MG TABLET PO SCH ×2 (08:57→17:51)
[2017-10-03] MEDS: ASPIRIN 81 MG TAB.CHEW PO SCH (08:57)
[2017-10-03] MEDS: ATORVASTATIN 10 MG TABLET PO SCH (08:57)
[2017-10-03] MEDS: MULTIVITAMINS,THERAGRAN 1 UDTAB TABLET PO SCH (08:57)
[2017-10-03] MEDS: METOPROLOL SUCCINATE 50 MG TAB.SR.24H PO SCH (08:58)
[2017-10-03] MEDS: AMLODIPINE BESYLATE 10 MG TABLET PO SCH (08:58)
[2017-10-03] MEDS: QUETIAPINE FUMARATE 25 MG TABLET PO SCH ×3 (08:58→17:50)
[2017-10-03] MEDS: CLOTRIMAZOLE 1% 15 GM TUBE TP SCH ×2 (08:59→17:51)
--- NOTE | 2017-10-03 11:00 | NUR ---
MSRN NOTES. DIAGNOSTIC TECH CN AWARE OF NO IVC, REQUESTING NEW IVC PLACED FOR LAST IVAB BEFORE DISCHARGE. CASE MANAGEMENT REQUESTING IVC PLACED AND LEFT IN SITU FOR HHC USE. LATE IV AB ADMIN APPROVED BY DIAGNOSTIC TECH MIGEL.
[2017-10-03 16:00] VITALS: BP 133/67
[2017-10-03] MEDS: INSULIN REGULAR, HUMAN 100 UNIT/ML 3 ML VIAL SQ PRN (17:55)
--- NOTE | 2017-10-03 18:00 | NUR ---
MSRN D/C NOTES. PT PREPARED FOR D.C PER MD. PT TOLERATING ROOM AIR WITHOUT DISTRESS AND WITHOUT S/S OF PAIN OR DISCOMFORT. PT WITH IVC AT R WRIST INTACT AND SALINE LOCKED, IVC REMAINS IN-SITU PER CHILD DEVELOPMENT PROFESSOR CN AND CM FOR CONTINUED IVAB WITH HHC. PT SON BRIEFED ON SO D/C PACKET, FOLLOW UP WITH HHC AND MEDICATIONS AND IS VERBALIZING UNDERSTANDING, RESOURCES AND INTENT TO FOLLOW POC. PT WITHOUT BELONGINGS AND DOCUMENT SIGNED. PT LEFT WITH FAMILY VIA WHEELCHAIR. FAMILY WITHOUT CONCERN OR COMPLAINT AT D/C.
== END 2017-10-03 18:00 | disposition home health service (06) | DRG 689 ==
LOC: ER 11:08 → MED 14:06
PROVIDERS: ADMIT Nurse Practitioner Acute Care; ATTEND Nurse Practitioner Acute Care
DX: N39.0 Urinary tract infection, site not specified (principal); N17.0 Acute kidney failure with tubular necrosis; G93.41 Metabolic encephalopathy; E44.0 Moderate protein-calorie malnutrition; F03.91 Unspecified dementia, unspecified severity, with behavioral disturbance; E11.65 Type 2 diabetes mellitus with hyperglycemia; D63.8 Anemia in other chronic diseases classified elsewhere; I10 Essential (primary) hypertension; E78.5 Hyperlipidemia, unspecified; K21.9 Gastro-esophageal reflux disease without esophagitis; B96.89 Other specified bacterial agents as the cause of diseases classified elsewhere; R53.81 Other malaise; F39 Unspecified mood [affective] disorder
CPT/HCPCS: 36415; 71045-TC; 80048-TC; 80061-TC; 80076-TC; 80164-TC; 81000-TC; 82962-TC; 83605-TC; 83735-TC; 84100-TC; 84443-TC; 84484-TC; 85025-TC; 85730-TC; 87040-TC; 87081-TC; 87086-TC; 87186-TC; A4216; A4606; J1815; J2060; J2185; J3475; J3490; J7030; J7040; J7050; Z7610

== ENCOUNTER 2020-09-12 11:15 | Outpatient (CLI) | payer MEDICARE, MEDICAID ==
[~2020-09-12 11:15] MED LIST changes: +AMLO-213 PO; -AMLO10TA6 PO; +ERTA1VIA2 IV; +LIDOCAINE 2% JEL 5 ML TUBE ONE; -MUPI22OI7; -NITR100C6 PO
[2020-09-12] MEDS ORDERED: Z GUARD REMEDY 2 OZ OINT TP ONE (11:49)
== END 2020-09-12 23:59 | disposition home health service (06) ==
LOC: WOU 11:15
PROVIDERS: ATTEND Surgery
DX: L89.153 Pressure ulcer of sacral region, stage 3 (principal); I10 Essential (primary) hypertension; E11.9 Type 2 diabetes mellitus without complications; Z79.84 Long term (current) use of oral hypoglycemic drugs; Z79.82 Long term (current) use of aspirin
CPT/HCPCS: 11042

== ENCOUNTER 2020-10-31 11:00 | Outpatient (CLI) | payer MEDICARE, MEDICAID ==
[~2020-10-31 11:00] MED LIST changes: -LIDOCAINE 2% JEL 5 ML TUBE ONE
[2020-10-31] MEDS ORDERED: Z GUARD REMEDY 2 OZ OINT TP ONE (11:40)
== END 2020-10-31 23:59 | disposition home health service (06) ==
LOC: WOU 11:00
PROVIDERS: ATTEND Surgery
DX: L89.153 Pressure ulcer of sacral region, stage 3 (principal); L89.610 Pressure ulcer of right heel, unstageable; L89.626 Pressure-induced deep tissue damage of left heel; Z79.82 Long term (current) use of aspirin; I10 Essential (primary) hypertension; E11.9 Type 2 diabetes mellitus without complications; Z79.84 Long term (current) use of oral hypoglycemic drugs
CPT/HCPCS: 11042; G0463

== ENCOUNTER 2020-11-14 13:25 | Outpatient (CLI) | payer MEDICARE, MEDICAID ==
[2020-11-14] MEDS ORDERED: COLLAGENASE 5 GM TUBE UD TP ONE (14:15)
[2020-11-14] MEDS ORDERED: Z GUARD REMEDY 2 OZ OINT TP ONE (14:16)
== END 2020-11-14 23:59 | disposition home health service (06) ==
LOC: WOU 13:25
PROVIDERS: ATTEND Surgery
DX: L89.153 Pressure ulcer of sacral region, stage 3 (principal); L89.610 Pressure ulcer of right heel, unstageable; L89.220 Pressure ulcer of left hip, unstageable; E11.9 Type 2 diabetes mellitus without complications; Z79.84 Long term (current) use of oral hypoglycemic drugs; Z79.82 Long term (current) use of aspirin
CPT/HCPCS: 11042; 11045

== ENCOUNTER 2020-11-28 11:00 | Outpatient (CLI) | payer MEDICARE, MEDICAID ==
[2020-11-28] MEDS ORDERED: LIDOCAINE SOLN 4% 50 ML BOTTLE ONE (11:29)
== END 2020-11-28 23:59 | disposition home health service (06) ==
LOC: WOU 11:00
PROVIDERS: ATTEND Surgery
DX: L89.324 Pressure ulcer of left buttock, stage 4 (principal); L89.153 Pressure ulcer of sacral region, stage 3; L89.892 Pressure ulcer of other site, stage 2; L89.610 Pressure ulcer of right heel, unstageable; Z79.82 Long term (current) use of aspirin
CPT/HCPCS: 11043

== ENCOUNTER 2020-12-19 10:45 | Outpatient (CLI) | payer MEDICARE, MEDICAID | END 2020-12-19 23:59 | disposition home health service (06) | LOC: WOU 10:45 | PROVIDERS: ATTEND Surgery | DX: L89.324 Pressure ulcer of left buttock, stage 4 (principal); L89.153 Pressure ulcer of sacral region, stage 3; L89.613 Pressure ulcer of right heel, stage 3; Z79.82 Long term (current) use of aspirin | CPT/HCPCS: 11042; 11043; 11045 ==

== ENCOUNTER 2020-12-26 11:00 | Outpatient (CLI) | payer MEDICARE, MEDICAID ==
[2020-12-26] MEDS ORDERED: DAKINS HALF STRENGTH (0.25%) 480 ML BOTTLE ONE (11:51)
== END 2020-12-26 23:59 | disposition home health service (06) ==
LOC: WOU 11:00
PROVIDERS: ATTEND Surgery
DX: L89.324 Pressure ulcer of left buttock, stage 4 (principal); L89.153 Pressure ulcer of sacral region, stage 3; L89.616 Pressure-induced deep tissue damage of right heel; L89.896 Pressure-induced deep tissue damage of other site; L89.313 Pressure ulcer of right buttock, stage 3; L89.626 Pressure-induced deep tissue damage of left heel; E11.9 Type 2 diabetes mellitus without complications; Z79.84 Long term (current) use of oral hypoglycemic drugs; I10 Essential (primary) hypertension
CPT/HCPCS: 11044; 11047

== ENCOUNTER 2021-01-09 11:00 | Outpatient (CLI) | payer MEDICARE, MEDICAID ==
[2021-01-09] MEDS ORDERED: LIDOCAINE SOLN 4% 50 ML BOTTLE ONE (11:02)
[2021-01-09] MEDS ORDERED: Z GUARD REMEDY 2 OZ OINT TP ONE (11:20)
== END 2021-01-09 23:59 | disposition home health service (06) ==
LOC: WOU 11:00
PROVIDERS: ATTEND Surgery
DX: L89.324 Pressure ulcer of left buttock, stage 4 (principal); L89.153 Pressure ulcer of sacral region, stage 3; L89.313 Pressure ulcer of right buttock, stage 3; L89.613 Pressure ulcer of right heel, stage 3; L89.626 Pressure-induced deep tissue damage of left heel; L89.896 Pressure-induced deep tissue damage of other site; Z79.82 Long term (current) use of aspirin; E11.9 Type 2 diabetes mellitus without complications; Z79.84 Long term (current) use of oral hypoglycemic drugs; I10 Essential (primary) hypertension
CPT/HCPCS: 11044; 11047

== ENCOUNTER 2021-03-04 09:00 | Outpatient (CLI) | payer MEDICARE, OTHER | END 2021-03-04 23:59 | disposition home health service (06) | LOC: WOU 09:00 | PROVIDERS: ATTEND Surgery | DX: L89.324 Pressure ulcer of left buttock, stage 4 (principal); L89.313 Pressure ulcer of right buttock, stage 3; L89.153 Pressure ulcer of sacral region, stage 3; L89.620 Pressure ulcer of left heel, unstageable; L89.613 Pressure ulcer of right heel, stage 3; L89.213 Pressure ulcer of right hip, stage 3; L89.896 Pressure-induced deep tissue damage of other site; I11.0 Hypertensive heart disease with heart failure; E11.9 Type 2 diabetes mellitus without complications; Z79.84 Long term (current) use of oral hypoglycemic drugs; Z79.82 Long term (current) use of aspirin | CPT/HCPCS: 11044; 11047 ==

== ENCOUNTER 2021-03-11 08:50 | Outpatient (CLI) | payer MEDICARE, OTHER ==
[2021-03-11] MEDS ORDERED: Z GUARD REMEDY 2 OZ OINT TP ONE (09:25)
== END 2021-03-11 23:59 | disposition home health service (06) ==
LOC: WOU 08:50
PROVIDERS: ATTEND Surgery
DX: L89.324 Pressure ulcer of left buttock, stage 4 (principal); L89.153 Pressure ulcer of sacral region, stage 3; L89.613 Pressure ulcer of right heel, stage 3; L89.620 Pressure ulcer of left heel, unstageable; L89.313 Pressure ulcer of right buttock, stage 3; L89.210 Pressure ulcer of right hip, unstageable; L89.896 Pressure-induced deep tissue damage of other site; L89.516 Pressure-induced deep tissue damage of right ankle; L89.893 Pressure ulcer of other site, stage 3; E11.9 Type 2 diabetes mellitus without complications; I10 Essential (primary) hypertension; Z79.84 Long term (current) use of oral hypoglycemic drugs; Z79.82 Long term (current) use of aspirin
CPT/HCPCS: 11044; 11047

== ENCOUNTER 2021-04-08 08:45 | Outpatient (CLI) | payer MEDICARE, OTHER ==
[2021-04-08] MEDS ORDERED: LIDOCAINE SOLN 4% 50 ML BOTTLE ONE (08:57)
[2021-04-08] MEDS ORDERED: SILVER NITRATE APPLICATOR 1 EA BOX ONE (15:45)
== END 2021-04-08 23:59 | disposition home health service (06) ==
LOC: WOU 08:45
PROVIDERS: ATTEND Surgery
DX: L89.324 Pressure ulcer of left buttock, stage 4 (principal); L89.313 Pressure ulcer of right buttock, stage 3; L89.153 Pressure ulcer of sacral region, stage 3; L89.214 Pressure ulcer of right hip, stage 4; L89.620 Pressure ulcer of left heel, unstageable; L89.613 Pressure ulcer of right heel, stage 3; L89.894 Pressure ulcer of other site, stage 4; L89.890 Pressure ulcer of other site, unstageable; E11.9 Type 2 diabetes mellitus without complications; Z79.84 Long term (current) use of oral hypoglycemic drugs; I10 Essential (primary) hypertension
CPT/HCPCS: 11043; 11044; 11047